=== PATIENT | male | born 1945 | race Caucasian/White ===

== ENCOUNTER 2020-07-05 11:09 | Emergency (ER) | payer MEDICARE, OTHER, SELFPAY ==
--- NOTE | ~2020-07-05 | XR_ITS ---
EXAMINATION: XR knee LT 3V DATE: 07/05/2020 12:09 INDICATION: Left knee pain TECHNIQUE: Three views of the left knee were obtained. COMPARISON: 01/18/2019 FINDINGS: Alignment is normal. No fracture or osteochondral lesion. There is unchanged moderate osteo arthritis of the medial and patellofemoral compartments and mild osteoarthritis of the lateral compar tment. A moderate size knee joint effusion is present. Soft tissues are unremarkable. IMPRESSION: 1. Moderate osteoarthritis without acute osseous abnormality. 2. Moderate size knee joint effusion. Reviewed, dictated and finalized at location A.
--- NOTE | ~2020-07-05 | XR_ITS ---
EXAMINATION: XR knee RT 3V DATE: 07/05/2020 12:09 INDICATION: Right knee pain TECHNIQUE: Three views of the right knee were obtained. COMPARISON: None. FINDINGS: Alignment is normal. No fracture or osteochondral lesion. There is moderate osteoarthritis of the patellofemoral compartment and mild osteoarthritis of the medial and lateral compartments. A s mall knee joint effusion is present. Soft tissues are unremarkable. IMPRESSION: 1. Osteoarthritis without acute osseous abnormality. 2. Small knee joint effusion. Reviewed, dictated and finalized at location A.
--- NOTE | 2020-07-05 11:27 | ED.FALL ---
HPI - Fall General Chief Complaint: Fall Stated Complaint: fell down the stairs Time Seen by Provider: 07/05/20 11:31 Source: patient and RN notes reviewed Mode of arrival: ambulatory Limitations: no limitations History of Present Illness HPI Narrative: 74-year-old male who presents to [facility] care with complaints of falling down the last 3 stairs in his basement last night landing on his knees. Patient states that his left knee just buckled when he was going down steps and he fell, Patient denies any dizziness, headache or loss of consciousness at time of fall. Patient states discomfort to both of his knees with increase pain to the left with palpable tenderness to medial aspect of left knee, no visible bruising noted. Patient states that he has seen Dr Mejía for his knees before. MD complaint: fall Fall from: down stairs (#) (Fell down 3 steps) Place fall occurred: home Location of injury - extremities: Bilateral: knee Related Data Home Medications Medication Instructions Recorded Confirmed atorvastatin 20 mg tablet 20 mg PO DAILY 10/18/19 07/05/20 blood sugar diagnostic #10 each 10/18/19 10/20/19 metoprolol tartrate 50 mg tablet 50 mg PO BID tablet 10/18/19 07/05/20 Allergies Allergy/AdvReac Type Severity Reaction Status Date / Time erythromycin base Allergy Unknown Unknown Verified 07/05/20 11:32 tetracycline Allergy Unknown Unknown Verified 07/05/20 11:32 Review of Systems Review of Systems: Narrative: CONSTITUTIONAL: Denies fever, chills, or sweats. EYES: Denies visual changes, redness, or discharge. ENT: Denies rhinorrhea, congestion, sore throat, or otalgia. CARDIOVASCULAR: Denies chest pain, palpitations, or edema. RESPIRATORY: Denies cough or dyspnea. GASTROINTESTINAL: Denies abdominal pain, nausea, vomiting, or diarrhea. GENITOURINARY: Denies dysuria or hematuria. SKIN: Denies rash or itching. MUSCULOSKELETAL: Denies acute back pain,positive for bilateral knee joint pain, or myalgia. NEUROLOGIC: Denies headache, numbness, or weakness. PSYCHIATRIC: Denies anxiety or depression. All systems reviewed & are unremarkable except as noted in HPI and below PMFSH Past Medical History Medical History Arthritis Chronic low back pain Coronary artery disease Degenerative disc disease Depression Diabetes Gout History of transient ischemic attack (TIA) Hypertension Surgical History Surgical History History of amputation of finger of left hand History of cardiac catheterization Hx of arthroscopy of left knee S/P laparoscopic fundoplication Family History Family History Mother Diabetes mellitus Family history of osteoarthritis Father Family history of dementia Other Family history of arthritis Family history of malignant neoplasm Social History Social History Smoking status: Never smoker Second hand tobacco smoke exposure: No Alcohol intake: current Substance use: never Substance use type: does not use Comments At time of signature, agree with nursing past medical, surgical, social and family history. There is no relevant family history pertinent to the presenting complaint Exam Narrative: Exam Narrative: GENERAL: Well-appearing, well-nourished, and in no acute distress. HEAD: Normocephalic, atraumatic. EYES: PERRLA and EOMI. ENT: Nares clear, no rhinorrhea or epistaxis. Mucous membranes moist. NECK: Supple.no lymphadenopathy CHEST: Clear to auscultation. No respiratory distress. HEART: Regular rate and rhythm. No murmur heard. Normal peripheral pulses. ABDOMEN: Soft, nontender, nondistended, normal active bowel sounds. EXTREMITIES: discomfort with range of motion to his knees, pain to medial aspect left knee greatest,swelling present to left knee, denies any tingling or n
[2020-07-05 11:32] VITALS: BP 117/51; PULSE 63; RESP 16; TEMP 36.4
== END 2020-07-05 12:52 | disposition home or self-care (01) ==
PROVIDERS: Emergency Provider Registered Nurse; PCP Family Medicine
DX: S86.911A Strain of unspecified muscle(s) and tendon(s) at lower leg level, right leg, initial encounter (principal); S80.02XA Contusion of left knee, initial encounter; M17.0 Bilateral primary osteoarthritis of knee; I25.10 Atherosclerotic heart disease of native coronary artery without angina pectoris; E11.9 Type 2 diabetes mellitus without complications; F32.9 Major depressive disorder, single episode, unspecified; I10 Essential (primary) hypertension; Z86.73 Personal history of transient ischemic attack (TIA), and cerebral infarction without residual deficits; W10.9XXA Fall (on) (from) unspecified stairs and steps, initial encounter; Y92.008 Other place in unspecified non-institutional (private) residence as the place of occurrence of the external cause
CPT/HCPCS: 73562; 99214; G0463

== ENCOUNTER 2020-09-27 08:34 | Emergency (ER) | payer MEDICARE, OTHER, SELFPAY ==
--- NOTE | ~2020-09-27 | XR_ITS ---
EXAMINATION: XR tibia fibula RT 2V DATE: 09/27/2020 08:57 INDICATION: Right lower leg pain. Injury. TECHNIQUE: 2 views of right tibia and fibula were obtained. COMPARISON: Right knee radiographs 07/05/2020 FINDINGS: Bone alignment is normal. No fracture. There is a small right knee osteoarthritis. IMPRESSION: 1. Mild right knee osteoarthritis. Reviewed, dictated and finalized at location A.
--- NOTE | 2020-09-27 08:42 | ED.LOWEXIN ---
HPI - Extremity Injury (Lower) General Chief Complaint: Extremity Injury, Lower Stated Complaint: R LEG INJURY Source: patient and RN notes reviewed Mode of arrival: ambulatory Limitations: no limitations History of Present Illness HPI Narrative: 75-year-old male presents the concern for right anterior lower leg pain. He reports 6 days ago he fell catching his leg between a wheelchair ramp. Reports bruising to the anterior right lower leg, pain. Reports he has been using crutches to avoid weightbearing, which increases pain. Reports he has been elevating the leg and using ice. Reports he saw his pain management doctor who suggested he get an x-ray of the leg. He denies any numbness, weakness in the ankle, foot, digits of the foot. Denies any posterior leg redness, swelling, tenderness, warmth. MD complaint: leg injury Related Data Home Medications Medication Instructions Recorded Confirmed atorvastatin 20 mg tablet 20 mg PO DAILY 10/18/19 07/14/20 blood sugar diagnostic #10 each 10/18/19 07/14/20 metoprolol tartrate 50 mg tablet 50 mg PO BID tablet 10/18/19 07/14/20 acetaminophen 500 mg tablet 1,000 mg PO Q6H PRN tablet 07/14/20 07/14/20 Allergies Allergy/AdvReac Type Severity Reaction Status Date / Time erythromycin base Allergy Unknown Unknown Verified 07/14/20 15:47 tetracycline Allergy Unknown Unknown Verified 07/14/20 15:47 Review of Systems Review of Systems: Narrative: CONSTITUTIONAL: Denies malaise, chills, sweats, or fever. CARDIOVASCULAR: Denies chest pain, palpitations, or edema. RESPIRATORY: Denies cough or dyspnea. SKIN: Reports right lower leg bruising MUSCULOSKELETAL: Reports right lower anterior leg pain NEUROLOGIC: Denies numbness, weakness, or headache. PSYCHIATRIC: Denies anxiety or depression. All systems reviewed & are unremarkable except as noted in HPI and below [facility] Past Medical History Medical History (Updated 09/27/20 @ 09:15 by Martha Godfrey NP) Arthritis Bilateral knee pain Chronic low back pain Coronary artery disease Degenerative disc disease Depression Diabetes Gout History of transient ischemic attack (TIA) Hypertension Peripheral neuropathy Surgical History Surgical History History of amputation of finger of left hand History of cardiac catheterization Hx of arthroscopy of left knee S/P laparoscopic fundoplication Family History Family History Mother Diabetes mellitus Family history of osteoarthritis Father Family history of dementia Other Family history of arthritis Family history of malignant neoplasm Social History Social History Smoking status: Never smoker Second hand tobacco smoke exposure: No Alcohol intake: current Substance use: never Substance use type: does not use Comments At time of signature, agree with nursing past medical, surgical, social and family history. There is no relevant family history pertinent to the presenting complaint Exam Narrative: Exam Narrative: GENERAL: Well-appearing, well-nourished, and in no acute distress. HEAD: Normocephalic, atraumatic. EYES: PERRLA, conjunctivae clear NECK: Supple. CHEST: Speaks in full sentences. No respiratory distress. HEART: Regular rate and rhythm. Normal and equal peripheral pulses. EXTREMITIES: Right leg, ankle has normal strength and sensation, normal range of motion. No edema, mild anterior lower leg ecchymosis in later stages of healing. 5/5 strength with ankle and knee flexion and extension. Normal sensation with sensitivity to light touch and pain. No point tenderness. No open wounds, no skin tenting, no devitalized tissue or atrophy, no trophic changes, no obvious deformity, alignment normal, nearby joints and structures intact. Distal pulses palpable and equal bilaterally, skin warm, dry, pink. Capillar
[2020-09-27 08:43] VITALS: BP 153/87; PULSE 70; RESP 16; TEMP 36.3; O2SAT 98
== END 2020-09-27 09:21 | disposition home or self-care (01) ==
PROVIDERS: Emergency Provider Nurse Practitioner; PCP Family Medicine
DX: S89.91XA Unspecified injury of right lower leg, initial encounter (principal); W19.XXXA Unspecified fall, initial encounter; M17.11 Unilateral primary osteoarthritis, right knee; I25.10 Atherosclerotic heart disease of native coronary artery without angina pectoris; M10.9 Gout, unspecified; Z86.73 Personal history of transient ischemic attack (TIA), and cerebral infarction without residual deficits; E11.42 Type 2 diabetes mellitus with diabetic polyneuropathy; I10 Essential (primary) hypertension; F32.9 Major depressive disorder, single episode, unspecified
CPT/HCPCS: 73590; 99213; G0463

== ENCOUNTER 2022-01-26 12:56 | Emergency (ER) | payer MEDICARE, OTHER, SELFPAY ==
--- NOTE | ~2022-01-26 | XR_ITS ---
EXAMINATION: XR wrist RT min 3V EXAM DATE: 01/26/2022 13:19 INDICATION: FALL backwards onto ice this A.M.; gen pain Rt wrist. TECHNIQUE: Right wrist frontal, frontal with ulnar deviation, oblique and lateral projections obtain ed and reviewed. Comparison is made to prior examination from 07/12/2017. FINDINGS: Right wrist scapholunate joint space is maintained. There are no acute fractures or disloca tions identified. There is no subcutaneous gas. The soft tissue is unremarkable. There are no rad iopaque foreign bodies. There is moderate 1st carpometacarpal, mild to moderate triscaphe primary os teoarthritis. IMPRESSION: 1. Right wrist exam without acute osseous findings. Reviewed, dictated and finalized at location A. 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
[2022-01-26 13:02] VITALS: BP 137/70; PULSE 69; RESP 16; TEMP 36.2; O2SAT 99
--- NOTE | 2022-01-26 13:32 | ED.FALL ---
HPI - Fall General Chief Complaint: Fall Stated Complaint: FALL/HEAD INJURY/L WRIST INJURY Time Seen by Provider: 01/26/22 13:25 Source: patient, RN notes reviewed and old records reviewed Mode of arrival: ambulatory Limitations: no limitations History of Present Illness HPI Narrative: 76-year-old male [facility] of [facility] in his dry voice this morning. Reports slipped on ice fell hit the back of his head and hurt his right wrist. Reports momentary double vision after he fell and hit his head. Denies loss of consciousness. Reports right wrist hurting. Reports broke same wrist several years ago. Denies headache, dizziness, blurry vision, sensitivity to light, nausea or vomiting. Holding right wrist. Reports first and second fingers feel numb. Has not taken anything for pain. Reports this is his fall at home. Does not use walker. Denies other concerns. [facility] MD complaint: fall Fall from: standing Fall witnessed: no Place fall occurred: home Loss of consciousness: none Symptoms prior to fall: none Context: tripped/slipped (Slipped on ice at home.) Related Data Home Medications Medication Instructions Recorded Confirmed atorvastatin 20 mg tablet 20 mg PO DAILY 10/18/19 07/14/20 blood sugar diagnostic #10 each 10/18/19 07/14/20 metoprolol tartrate 50 mg tablet 50 mg PO BID tablet 10/18/19 07/14/20 acetaminophen 500 mg tablet 1,000 mg PO Q6H PRN tablet 07/14/20 07/14/20 Allergies Allergy/AdvReac Type Severity Reaction Status Date / Time erythromycin base Allergy Unknown Unknown Verified 07/14/20 15:47 tetracycline Allergy Unknown Unknown Verified 07/14/20 15:47 Review of Systems Review of Systems: CONSTITUTIONAL: Denies malaise, chills, sweats, fatigue or fever. EYES: Denies redness, or discharge. Momentary double vision. ENT: Denies rhinorrhea, congestion, sinus pain, otalgia or sore throat. CARDIOVASCULAR: Denies chest pain, palpitations, or edema. RESPIRATORY: Denies cough or dyspnea. GASTROINTESTINAL: Denies abdominal pain, nausea, vomiting, diarrhea, bloody, or mucous stools. GENITOURINARY: Denies dysuria or hematuria. SKIN: Denies rash or itching. MUSCULOSKELETAL: Denies back pain. Right wrist pain. NEUROLOGIC: Denies numbness, weakness, or headache. PSYCHIATRIC: Denies anxiety or depression. All systems reviewed & are unremarkable except as noted in HPI and below PMFSH Past Medical History Medical History (Updated 01/26/22 @ 13:58 by Renu Jewell APRN) Arthritis Bilateral knee pain Chronic low back pain Coronary artery disease Degenerative disc disease Depression Diabetes Gout History of transient ischemic attack (TIA) Hypertension Peripheral neuropathy Surgical History Surgical History History of amputation of finger of left hand History of cardiac catheterization Hx of arthroscopy of left knee S/P laparoscopic fundoplication Family History Family History Mother Diabetes mellitus Family history of osteoarthritis Father Family history of dementia Other Family history of arthritis Family history of malignant neoplasm Social History Social History Smoking status: Never smoker Second hand tobacco smoke exposure: No Alcohol intake: current Alcohol use details: 1 glass of wine rarely Substance use: never Substance use type: does not use Comments At time of signature, agree with nursing past medical, surgical, social and family history. There is no relevant family history pertinent to the presenting complaint Exam Narrative: GENERAL: Well-appearing, well-nourished, male and in no acute distress. Pleasant and cooperative. Talkative. HEAD: Normocephalic, atraumatic. No occipital swelling, ecchymosis or erythema. EYES: con
== END 2022-01-26 14:08 | disposition home or self-care (01) ==
PROVIDERS: Emergency Provider Nurse Practitioner Family
DX: M25.531 Pain in right wrist (principal); W00.0XXA Fall on same level due to ice and snow, initial encounter; M19.90 Unspecified osteoarthritis, unspecified site; I25.10 Atherosclerotic heart disease of native coronary artery without angina pectoris; E11.42 Type 2 diabetes mellitus with diabetic polyneuropathy; M10.9 Gout, unspecified; Z86.73 Personal history of transient ischemic attack (TIA), and cerebral infarction without residual deficits; I10 Essential (primary) hypertension
CPT/HCPCS: 73110; 99213; G0463

== ENCOUNTER → 2022-07-01 12:29 | Outpatient (CLI) | payer MEDICARE, OTHER, SELFPAY ==
--- NOTE | ~2022-07-01 | MR_ITS ---
EXAMINATION: MR lumbar spine wo con DATE: 07/01/2022 13:07 INDICATION: Lumbar degenerative disc disease. TECHNIQUE: Magnetic resonance imaging (MRI) of the lumbar spine was performed without intravenous con trast. Sequences included sagittal T2-weighted FSE, sagittal T2-weighted FS FSE, sagittal T1-weighted FSE, and axial T2-weighted FSE. COMPARISON: None FINDINGS: 15 degrees levoscoliosis measured between L3 and L5. 2 mm retrolisthesis L1 on L2 and L2 on L3. Verte bral body heights are normal. Severe right-sided disc height loss with associated prominent fibrovasc ular degenerative endplate changes. Moderate disc height loss at T11-T12. Mild disc height loss at L1 -L2, L2-L3 and L4-L5. The conus medullaris terminates at L1. There is normal signal in the caudal spi nal cord. Bilateral T2 hyperintense renal cysts, the largest measuring 4.6 cm right kidney. Paraverte bral soft tissues are unremarkable. The following disc levels are specifically discussed: T12-L1: Disc is minimally bulging. There is mild bilateral facet joint osteoarthritis. There is no ne ural foraminal stenosis. There is no central canal stenosis. L1-L2: Disc is moderately bulging. There is mild bilateral facet joint osteoarthritis. There is mild left and minimal right neural foraminal stenosis. There is mild central canal stenosis. L2-L3: Disc is bulging. There is left and moderate right facet joint osteoarthritis. There is mild bi lateral neural foraminal stenosis. There is mild central canal stenosis along with narrowing at the l ateral recesses, left greater than right. L4-5: Disc is bulging with annular fissure. There is bilateral facet joint osteoarthritis. There is m ild to moderate bilateral neural foraminal stenosis. There is mild central canal stenosis with narrow ing of the left and right lateral recesses. L3-L4: Disc is bulging. There is mild left and severe right facet joint osteoarthritis. There is mild left and moderate to severe right neural foraminal stenosis. There is a to severe right-sided predom inant central canal stenosis. L5-S1: Disc is mildly bulging with annular fissure. There is severe bilateral facet joint osteoarthri tis. There is mild bilateral neural foraminal stenosis. There is no central canal stenosis. IMPRESSION: 1. . Mild lower lumbar levoscoliosis with severe spondylosis. Reviewed, dictated and finalized at location A.
== END ==
PROVIDERS: PCP Family Medicine; Visit Provider Family Medicine
DX: M51.36 Other intervertebral disc degeneration, lumbar region (principal); Z92.89 Personal history of other medical treatment; M41.86 Other forms of scoliosis, lumbar region; M47.816 Spondylosis without myelopathy or radiculopathy, lumbar region
CPT/HCPCS: 72148

== ENCOUNTER 2025-05-19 11:12 | Inpatient (IN) | payer MEDICARE, OTHER, SELFPAY ==
[2025-05-19] VITALS (13 sets, daily range): BP systolic 89–116; BP diastolic 56–64; PULSE 52–80; RESP 10–20; TEMP 35.8–36.6; O2SAT 95–100; BMI 29.7
--- NOTE | ~2025-05-19 | US_ITS ---
EXAMINATION: US carotid duplex BI DATE: 05/20/2025 14:57 INDICATION: Syncope TECHNIQUE: Grayscale, color Doppler, and pulsed Doppler images of the cervical carotid arteries were obtained. The degree of vessel stenosis is placed in one of the following categories: normal, <50%, 5 0-69%, >=70% but less than near-occlusion, near-occlusion, or total occlusion. Note that percent sten osis relative to normal distal artery lumen diameter is indirectly measured from velocity measurement s as described by Zain, et al. Radiology 2003; 229:340-346. COMPARISON: None. FINDINGS: RIGHT: The right common carotid artery (CCA) peak systolic velocity (PSV) is 70 cm/s. The right internal car otid artery (ICA) PSV is 126 cm/s. The right ICA end-diastolic velocity (EDV) is 33 cm/s. The right I CA/CCA PSV ratio is 1.8. Grayscale and color Doppler images including secondary Doppler criteria yiel d an estimate of <50% diameter reduction from plaque in the ICA. The external carotid artery (ECA) PS V is 108 cm/s. There is antegrade flow in the right vertebral artery. LEFT: The left CCA PSV is 73 cm/s. The left ICA PSV is 97 cm/s. The left ICA EDV is 13 cm/s. The left ICA/C CA PSV ratio is 1.3. Grayscale and color Doppler images yield an estimate of <50% diameter reduction from plaque in the ICA. The ECA PSV is 92 cm/s. There is antegrade flow in the left vertebral artery. IMPRESSION: 1. <50% stenosis in the right internal carotid artery. 2. <50% stenosis in the left internal carotid artery. Reviewed, dictated and finalized at location B.
--- NOTE | ~2025-05-19 | CT_ITS ---
EXAMINATION: CT brain wo con DATE: 05/21/2025 12:41 INDICATION: Syncope TECHNIQUE: Computed tomography (CT) of the head was performed without intravenous contrast. Sagittal and coronal reconstructions were performed. The mA was adjusted according to patient size. Iterative reconstruction technique was employed. The dose-length product was 605.33 mGy-cm. COMPARISON: head CT dated 07/12/2017 FINDINGS: No acute intracranial hemorrhage, acute infarction or abnormal extra axial fluid collection. There is mild scattered white matter hypoattenuation consistent with chronic small vessel ischemic disease. S ymmetric prominence of the sulci, ventricles and subarachnoid spaces overlying the convexities consis tent with moderate age-appropriate diffuse cerebral volume loss. No mass/mass effect. Mild mucosal th ickening in the bilateral ethmoid and left maxillary sinuses. The orbits and mastoid air cells are no rmal. IMPRESSION: 1. No acute intracranial process. 2. Age-related changes including moderate diffuse volume loss and mild scattered white matter hypoatt enuation consistent with chronic small vessel ischemic disease. Reviewed, dictated and finalized at location A. IMPRESSION: 1. No acute intracranial process. 2. Age-related changes including moderate diffuse volume loss and mild scattere d white matter hypoattenuation consistent with chronic small vessel ischemic di sease.
--- NOTE | ~2025-05-19 | XR_ITS ---
XR chest 2V 05/19/2025 12:06 Indication: Syncope Procedure: 2 view chest Comparison: Comparison to multiple prior studies sequentially, with oldest reviewed study dated 03/2010. Findings: Heart size upper normal. Right lung clear. Left basilar atelectasis. No focal pneumonia, si gnificant effusion or pneumothorax. There is atherosclerosis. Impression: 1: Left basilar atelectasis. Reviewed, dictated and finalized at location A. Impression: 1: Left basilar atelectasis.
--- NOTE | 2025-05-19 11:27 | ECG_ITS ---
Test Date: 2025-05-19 11:37:17 Measurements Intervals [place] Rate: 54 P: 79 WV: 208 QRS: -31 QRSD: 90 T: -4 QT: 453 QTc: 431 Interpretive Statements SINUS BRADYCARDIA WITH SINUS ARRHYTHMIA LEFT AXIS DEVIATION INCOMPLETE RIGHT BUNDLE BRANCH BLOCK LOW QRS VOLTAGE IN PRECORDIAL LEADS CONSIDER INFERIOR INFARCT, AGE INDETERMINATE BORDERLINE ST-T WAVE ABNORMALITY- ANTERIOR LEADS BASELINE ARTIFACT- I, II, III, AVR, AVL, AVF, V2 ABNORMAL ECG No previous ECG available for comparison Electronically Signed On 05-19-2025 12:02:22 CDT by Mark Proctor D.O.
--- NOTE | 2025-05-19 12:24 | ED_ITS ---
HPI - Syncope General Chief Complaint: Syncope Stated Complaint: syncope Time Seen by Provider: 05/19/25 11:31 History of Present Illness HPI narrative: Pt was shopping at [employer] and had completed his shopping and was talking to two customers when he started feeling lightheaded and had a syncopal episode. Pt thinks he was lowered to the ground byt the bystanders and has no complaints of pain or injury. Pt denies CP or palpitations of SOB prior to or after event. Related Data Home Medications ?Medication ?Instructions ?Recorded ?Confirmed ?Last Taken ?Type atorvastatin 20 mg tablet 20 mg PO DAILY 10/18/19 05/19/25 Unknown History metoprolol tartrate 50 mg tablet 50 mg PO BID 10/18/19 05/19/25 Unknown History gabapentin 100 mg capsule 100 mg PO BID 05/19/25 05/19/25 Unknown History levothyroxine 50 mcg tablet 50 mcg PO DAILY@0630 05/19/25 05/19/25 Unknown History pregabalin 100 mg capsule 100 mg PO BID 05/19/25 05/19/25 Unknown History valsartan 80 mg tablet 40 mg PO DAILY 05/19/25 05/19/25 Unknown History vit C 250 mg-vit E 90 mg-zinc 40 1 tablet PO BID 05/19/25 05/19/25 Unknown History mg-copper 1 [id number]-[place] capsule ([facility] AREDS-2) zolpidem 12.5 mg tablet,extended 12.5 mg PO .QHS insomnia 05/19/25 05/19/25 05/18/25 History release,multiphase Allergies Allergy/AdvReac Type Severity Reaction Status Date / Time erythromycin base Allergy Unknown Unknown Verified 07/14/20 15:47 tetracycline Allergy Unknown Unknown Verified 07/14/20 15:47 Review of Systems 2 Review of Systems: All systems reviewed & are unremarkable except as noted in HPI and below [facility] Past Medical History Medical History (Updated 05/19/25 @ 14:52 by Yumiko Dorman APRN) Peripheral neuropathy Bilateral knee pain Chronic low back pain Coronary artery disease Arthritis Diabetes Depression Hypertension History of transient ischemic attack (TIA) Gout Degenerative disc disease Surgical History Surgical History History of amputation of finger of left hand History of cardiac catheterization Hx of arthroscopy of left knee S/P laparoscopic fundoplication Family History Family History Mother Diabetes mellitus Family history of osteoarthritis Father Family history of dementia Other Family history of arthritis Family history of malignant neoplasm Social History Social History Smoking status: Never smoker Second hand tobacco smoke exposure: No Alcohol intake: current Alcohol use details: 1 glass of wine rarely Substance use: never Substance use type: does not use Do You Feel Safe in your Home?: Yes Lack of Transportation: No Lack of Food: Sometimes True Current Housing: I Have Housing Concerned About Future Housing: No Difficulty Paying Gas/Electric Bills: No Difficulty Paying for Meds: No Currently Unemployed: No Education: Master's Degree or Higher Difficulty w/ Childcare or Family Care: No Spiritual care concerns: No Exam 2 Const: General: healthy appearing and no acute distress Nutritional Appearance: well nourished Orientation/consciousness: patient oriented x3 Limitations: no limitations Eyes: Pupils: Equal, round and reactive pupils present EOM: EOMs intact bilaterally Neck: Neck: normal visual inspection Chest: Chest palpation & inspection: normal inspection of the chest Resp: Effort & Inspection: normal respiratory effort Auscultation: clear to auscultation bilaterally Cardio: Rate: regular rate Rhythm: regular rhythm GI: Auscultation: normal bowel sounds Skin: General skin exam: normal color Rashes: no rashes Wounds: no wounds Neuro: General: patient oriented x3, moves all extremities, no meningeal signs and no focal motor deficits Cranial nerves: Yes Nystagmus not present S peech: normal speech Extrem: General: normal to inspection and no clubbing, cyanosis or edema Psych: Mental Status: mental status grossly normal Affect: normal affect Attitude: cooperative Course Vital Signs Vital signs: Vital Signs Temperature 97.8 F 05/19/25 11:28 Pulse Rate 57 L 05/19/25 11:28 Respiratory Rate 20 05/19/25 11:28 Blood Pressure 91/56 L 05/19/25 11:28 Pulse Oximetry 95 05/19/25 11:28 Oxygen Delivery Room Air 05/19/25 11:28 Temperature 97.8 F 05/19/25 11:28 Pulse Rate 54 L 05/19/25 14:00 Respiratory Rate 14 05/19/25 14:00 Blood Pressure 106/63 05/19/25 14:00 Pulse Oximetry 100 05/19/25 14:00 Oxygen Delivery Room Air 05/19/25 11:28 MDM - Syncope MDM Narrative Medical decision making narrative: Pt presents after having syncopal episode. seems more cardiac. will get labs and ekg and cxr and orthostatics. will likely need observation. labs look fine no arrythmia on monitor. discussed with Yumiko agrees to admit to observation. Differential Diagnosis Differential diagnosis: Likely syncope due to orthostatic hypotension, vasovagal syncope, complete atrioventricular block and dehydration Lab Data 05/19/25 12:22 05/19/25 12:22 Labs: Lab Results 05/19/25 05/19/25 05/19/25 Range/Units 12:20 12:22 12:23 WBC 8.2 (4.5-10.0) K/mm3 RBC 3.92 L (4.6-6.20) M/mm3 Hgb 12.6 L (14.0-18.0) g/dL Hct 38.4 L (42.0-52.0) % MCV 98.0 (80-100) fl MCH 32.1 (26-34) pg MCHC 32.8 (32-36) g/dl RDW 13.6 (11.5-14.5) % Plt Count 132 L (150-375) k/mm3 MPV 10.7 H (7.4-10.4) fl Immature Gran % (Auto) 0.2 (0-0.5) % Neut % (Auto) 71.4 (45.5-73.1) % Lymph % (Auto) 15.0 L (18.3-44.2) % [place] % (Auto) 11.4 H (2.6-8.5) % Eos % (Auto) 1.8 (0-4.4) % Baso % (Auto) 0.2 (0.2-1.2) % Lymph # (Auto) 1.23 (0.9-3.2) K/mm3 [place] # (Auto) 0.9 H (0.1-0.6) K/mm3 Eos # (Auto) 0.2 (0-0.3) K/mm3 Baso # (Auto) 0.0 (0.0-0.1) K/mm3 Abs Immat Gran (auto) 0.02 (0.00-0.031) K/mm3 Absolute Neuts (auto) 5.9 (1.3-6.7) K/mm3 Absolute Nucleated RBC 0.000 (0.0-0.012) K/mm3 Nucleated RBC % 0.0 (0.0-0.2) % % Immature Plt Fraction 8.5 (0.9-11.2) % PT 14.2 (11.1-14.7) Seconds INR 1.1 APTT 45.2 H (22.3-36.8) Seconds Sodium 137 (137-145) mmol/L Potassium 4.2 (3.4-5.0) mmol/L Chloride 105 (98-107) mmol/L Carbon Dioxide 26 (22-30) mmol/L Anion Gap 6 (4-12) mmol/L BUN 15 (9-20) mg/dL Creatinine 0.94 (0.7-1.3) mg/dL Estim Creat Clear Calc 58 ml/min Estimated GFR > 60 (59 - ) Glucose 116 H (65-110) mg/dL Calcium 8.6 (8.4-10.2) mg/dL Total Bilirubin 0.5 (0.2-1.3) mg/dL AST 43 (17-59) U/L ALT 38 (6-50) U/L Alkaline Phosphatase 86 (38-126) U/L Troponin I < 0.012 (0.000-0.034) ng/mL Total Protein 6.8 (6.3-8.2) g/dL Albumin 3.7 (3.5-5.1) g/dL Discharge Plan Discharge Clinical Impression: Syncope Patient Disposition: Still a Patient Condition: Stable
--- OUTSIDE RECORDS SUMMARY | 2025-05-19 12:25 | XMS_ITS | Continuity of Care Document ---
Author Name [facility] Organization [facility] Care Team Providers Care Eligibility And Occupancy Interviewer Name Role Phone [facility] Unavailable Unavailable Medications Combined list of outpatient medications from Department of Defense and Veterans Affairs facilities.Medications provided include 1) outpatient medications from the last 15 months, and 2) patient-reported medications. Medication Details Route Status Patient Instructions Prescription Expires Prescription Number Last Dispense Date Ordering Provider Order Date Order Qty Source AMBIEN CR (ZOLPIDEM TARTRATE), 12.5MG, TAB MPHASE, ORAL, [facility], 100 ea. BOTTLE Active [id number] 4 2023 90 Pharmac y Data Transac tion Service Facilit y ATORVASTATI N CALCIUM (atorvastat in calcium), 20 MG, TABLET, ORAL, PAUL PHARMACEU, 500 ea. BOTTLE Active [id number] 2023 90 Pharmac y Data Transac tion Service Facilit y CLOPIDOGREL (clopidogre l bisulfate), 75 MG, TABLET, ORAL, PAUL [facility]ARM[facility]U, 1000 ea. BOTTLE Active [id number] 4 2023 90 Pharmac y Data Transac tion Service Facilit y GLIMEPIRIDE (glimepirid e), 1 MG, TABLET, ORAL, [employer] 100 ea. BOTTLE Active [id number] 4 2023 90 Pharmac y Data Transac tion Service Facilit y METOPROLOL TARTRATE (metoprolol tartrate), 50 MG, TABLET, ORAL, [employer] 1000 ea. BOTTLE Active [id number] 4 2023 180 Pharmac y Data Transac tion Service Facilit y PREGABALIN (pregabalin ), 100 MG, CAPSULE, ORAL, [facility], 90 ea. BOTTLE Cancele d [id number] : 2023 0 Pharmac y Data Transac tion Service Facilit y PREGABALIN (pregabalin ), 100 MG, CAPSULE, ORAL, [facility], 90 ea. BOTTLE Active [id number] 4 2023 60 Pharmac y Data Transac tion Service Facilit y VALSARTAN (VALSARTAN) , 160 MG, TABLET, ORAL, [facility] 90 ea. BOTTLE Active [id number] 4 2023 90 Pharmac y Data Transac tion Service Facilit y ZOLPIDEM TARTRATE ER (ZOLPIDEM TARTRATE), 12.5 MG, TAB MPHASE, ORAL, LUPIN [facility]ARMACE[facility], 100 ea. BOTTLE Active [id number] 4 2023 90 Pharmac y Data Transac tion Service Facilit y Immunizations Combined list of available immunizations from the Department of Defense and Veterans Affairs facilities. 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 Status Comments Source COVID-19, mRNA, LNP-S, PF, 30 mcg/0.3 mL dose, tova-sucrose 2021 [employer] (PFR) Not Given COVID-19, mRNA, LNP-S, PF, 30 mcg/0.3 mL dose, tova-sucr ose [facility] influenza, high-dose, quadrivalent 2020 RAUL, () Not Given influenza , high-dose , quadrival ent DoD COVID-19, mRNA, LNP-S, PF, 30 mcg/0.3 mL dose 2020 [place] (PFR) Not Given COVID-19, mRNA, LNP-S, PF, 30 mcg/0.3 mL dose DoD COVID-19, mRNA, LNP-S, PF, 30 mcg/0.3 mL dose 2020 [employer] [place] (PFR) Not Given COVID-19, mRNA, LNP-S, PF, 30 mcg/0.3 mL dose DoD COVID-19, mRNA, LNP-S, PF, 30 mcg/0.3 mL dose 2020 [employer] [place] (PFR) Not Given COVID-19, mRNA, LNP-S, PF, 30 mcg/0.3 mL dose [facility] Influenza, injectable, MDCK, preservative free, quadrivalent 2019 ALUL, () Not Given Influenza , injectabl e, MDCK, preservat monique free, quadrival ent DoD Pneumococcal conjugate PCV 13 2017 ALUL, () Not Given Pneumococ dorinda conjugate PCV 13 [facility] Liberian Encephalitis Vaccine SC 3 1998 Unknown, Provider [id number] Tonya (CON) complet ed Liberian Encephali tis Vaccine SC DoD anthrax vaccine 3 1998 Unknown, Provider [id number] Other (OTH) complet ed anthrax vaccine DoD Liberian Encephalitis Vaccine SC 2 1998 Unknown, Provider [id number] 39 Tonya (CON) complet ed Liberian Encephali tis Vaccine SC DoD Liberian Encephalitis Vaccine SC 1 1998 Unknown, Provider [id number] 39 Tonya (CON) complet ed Liberian Encephali tis Vaccine SC [facility] typhoid vaccine, live, oral 1 1998 Unknown, Provider 25 () complet ed typhoid vaccine, live, oral DoD anthrax vaccine 2 1998 Unknown, Provider [id number] Other (OTH) complet ed anthrax vaccine DoD anthrax vaccine 3 1998 Unknown, Provider 24 [employer] [place] (MIP) complet ed anthrax vaccine DoD anthrax vaccine 2 1998 Unknown, Provider 24 [employer] [place] (MIP) complet ed anthrax vaccine DoD anthrax vaccine 1 1998 Unknown, Provider 24 [employer] [place] (MIP) complet ed anthrax vaccine [facility] influenza virus vaccine, whole virus 1 1997 Unknown, Provider 16 () complet ed influenza virus vaccine, whole virus [facility] meningococcal polysaccharid e vaccine (MPSV4) 1 1996 Unknown, Provider 32 () complet ed meningoco ccal polysacch aride vaccine (MPSV4) DoD typhoid vaccine, parenteral, acetone-kille d, dried ([place] ) 1 1996 Unknown, Provider 53 () complet ed typhoid vaccine, parentera l, acetone-k illed, dried ([place] ) [facility] hepatitis A vaccine, adult dosage 2 1995 Unknown, Provider 52 () complet ed hepatitis A vaccine, adult dosage DoD tetanus and diphtheria toxoids, adsorbed, preservative free, for adult use (2 Lf of tetanus toxoid and 2 Lf of diphtheria toxoid) 1 1994 Unknown, Provider 09 () complet ed tetanus and diphtheri a toxoids, adsorbed, preservat monique free, for adult use (2 Lf of tetanus toxoid and 2 Lf of diphtheri a toxoid) DoD yellow fever vaccine 1 1990 Unknown, Provider 37 () complet ed yellow fever vaccine DoD trivalent poliovirus vaccine, live, oral 1 1955 Unknown, Provider 02 () complet ed trivalent polioviru s vaccine, live, oral DoD Encounters Combined list of: 1) Encounters from Department of Veterans Affairs facilities going backup to the last 18 months, not all [facility] inpatient encounters are included; 2) Encounters from the Department of Defense facilities going backup to 280 months. Location Location Details Encounter Type Encounter Number Reason For Visit Attending Provider ADM Date DC Date Status Disposition Source [facility] Outpatient Encounter [id number] 9 12/28 [facility] Social History Combined list of available smoking, tobacco, and other social history from Department of Defense and Veterans Affairs facilities. Social History Type Response Date Comment Sourc e This section is an empty social history section. DoD
--- OUTSIDE RECORDS SUMMARY | 2025-05-19 12:25 | XMS_ITS | Referral Summary ---
Author Organization [facility] [address] [facility] [address] Address [address] [facility] [address] [place] [address] Care Team Providers Care Wage Adjuster Name Role Phone Michael De La Torre MD Primary Care Provider [phone] Jacqueline Matias DC Unavailable + Jose Jeffries MD Unavailable [phone] Jaswinder Kaplan OD Unavailable [phone] Encounters Date Type Department Care Team Description 02/28/2025 Telephone [facility] Primary Care at [address] [phone] Michael De La Torre MD albumin creatine ratio order 02/26/2025 Results Follow-Up [facility] Primary Care at [address] [id number] Michael De La Torre MD Thyroid Function [place], Hemoglobin A1c, Lipid panel, Additional followed-up results: 5 02/25/2025 11:46 AM CDT - 02/25/2025 11:59 PM CDT Hospital Encounter [address] [address] Hypertension associated with diabetes (HCC); Type 2 diabetes mellitus with hyperlipidemia (HCC); Coronary artery disease involving [place] coronary artery of [place] heart without angina pectoris; Morbid (severe) obesity due to excess calories (HCC); Body mass index (BMI) 31.0-31.9, adult Discharge Disposition: Discharge to home or self care 02/25/2025 11:45 AM CDT Lab [facility] Outpatient Lab at [address] [address] Type 2 diabetes mellitus with hyperlipidemia (HCC) (Primary Dx); Hypertension associated with diabetes (HCC) 02/25/2025 11:00 AM CDT Office Visit [facility] Primary Care at [address] [phone] Michael De La Torre MD Hypertension associated with diabetes (HCC) (Primary Dx); Coronary artery disease involving [place] coronary artery of [place] heart without angina pectoris; Type 2 diabetes mellitus with hyperlipidemia (HCC); Morbid (severe) obesity due to excess calories (HCC); Subclinical hypothyroidism from Last 3 Months Allergies No known active allergies Medications blood glucose diagnostic (glucose blood) stripIndications: Type 2 diabetes mellitus with diabetic polyneuropathy, without long-term current use of insulin ([facility]) For at-home monitoring of blood glucose E11.65 100 each 11 01/28/20 22 Active lancets miscIndications:T ype 2 diabetes mellitus with diabetic polyneuropathy, without long-term current use of insulin ([facility]) Check blood sugar 1-2 times a day or as directed. E11.65 100 each 11 01/28/20 22 Active nitroglycerin (NITROSTAT) 0.4 mg SL tabletIndications :acute episode of anginal pain Place 1 tablet (0.4 mg total) under the tongue every 5 (five) minutes as needed for chest pain 90 tablet 01/30/20 22 Active vitamins A,C,S-zyxx-qyaidj (ICaps AREDS) 14,320226-200 znzd-sx-gtlp capsule Take by mouth Active vit C/E/zinc ox/fam/lut/zeax (ICAPS AREDS2 ORAL) Take by mouth Active cyanocobalamin (Vitamin B-12) 100 mcg tabletIndications :Prevention of Vitamin B12 Deficiency Take 1 tablet (100 mcg total) by mouth daily Active glimepiride (AMARYL) 1 mg tablet TAKE 1 TABLET DAILY BEFORE BREAKFAST 90 tablet 3 03/17/20 24 Active citalopram (CeleXA) 20 mg tablet TAKE 1 TABLET DAILY 90 tablet 3 08/17/20 24 Active valsartan (DIOVAN) 80 mg tabletIndications :Iatrogenic hypotension TAKE 1 TABLET DAILY 90 tablet 3 02/01/20 Active clopidogreL (PLAVIX) 75 mg tablet TAKE 1 TABLET DAILY 90 tablet 1 02/20/20 Active NON FORMULARY, FOR CLINIC ADMINISTERED MEDICATIONS ONLY, (not in database) 10/01/20 Active levothyroxine (SYNTHROID) 50 mcg tabletIndications :Subclinical hypothyroidism Take 1 tablet (50 mcg total) by mouth daily 90 tablet 4 02/26/20 Active pregabalin (LYRICA) 100 mg capsuleIndication s:Type 2 diabetes mellitus with diabetic polyneuropathy, without long-term current use of insulin (HCC) TAKE 1 CAPSULE TWICE A DAY 60 capsule 3 03/25/20 Active atorvastatin (LIPITOR) 20 mg tablet TAKE 1 TABLET DAILY 90 tablet 04/18/20 25 2024 Active Ambien CR 12.5 mg CR tabletIndications :Other insomnia TAKE 1 TABLET NIGHTLY NEEDED FOR SLEEP 90 tablet 1 05/06/20 Active metoprolol tartrate (LOPRESSOR) 50 mg immediate release tablet TAKE 1 TABLET TWICE A DAY WITH MEALS 180 tablet 3 05/17/20 25 2024 Active metoprolol tartrate (LOPRESSOR) 50 mg immediate release tablet TAKE 1 TABLET TWICE A DAY WITH MEALS 180 tablet 3 04/23/20 24 2024 Discontinued zolpidem CR (Ambien CR) 12.5 mg CR tabletIndications :Insomnia Take 1 tablet (12.5 mg total) by mouth nightly as needed for sleep 90 tablet 2 11/10/20 24 2024 Discontinued Active Problems Problem Noted Date Diagnosed Date Subclinical hypothyroidism 02/26/2025 Platelets decreased 05/11/2024 Morbid (severe) obesity due to excess calories 0 03/20/2023 Assessment & Plan (11/21/2024 7:23 PM PHARMACY MESSENGER): BMI Follow-up includes: nutrition counseling, exercise counseling, and education provided. meterman current use of anticoagulant Chronic midline low back pain without sciatica 1 Sacroiliitis 09/27/2022 DDD (degenerative disc disease), lumbar 09/27/20 Other insomnia 02/25/2022 Trochanteric bursitis of right hip 02/12/2022 Lumbar facet arthropathy 02/12/2022 Peripheral neuropathy 02/12/2022 Type 2 diabetes mellitus with hyperlipidemia Cervical spondylosis with radiculopathy 01/28/20 Hypertension associated with diabetes 01/28/2022 Assessment & Plan (08/31/2022 2:22 PM CDT): BP is acceptable Labs reviewed. Mildly low HDL/good cholesterol noted TSH is slightly high, but T4 is in range. We will repeat thyroid panel in 3-4 weeks (nonfasting) Otherwise labs look fine Labs ordered for next V/medicare AWV Continue working with PT exercises Pain management referral to Dr. Huerta ordered today Assessment & Plan (02/25/2022 1:27 PM CDT): Voltaren cream trial (OTC) as discussed by pain management. Continue as per Pain Management otherwise, as well as as per chiropractor Diabetes seems under control, continuing current regimen; last A1c was 6.3% Verified compliance with glimepiride, will continue that current regimen Encounter for Medicare annual wellness exam 01/02 Assessment & Plan (05/11/2024 1:17 PM CDT): A(n) yearly Medicare Annual Wellness Visit has been performed today. Jose Zaragoza is not up to date on screening tests. He is in need of Diabetic eye exam and hepatitis B screening . He is not up to date on needed preventative vaccinations; He is in need of Zoster. We discussed healthy lifestyle habits, educational material has been given. Medications reviewed, changes documented as per the medical record and discussed with patient along with risks vs benefits. Return in 6 months Assessment & Plan (03/20/2023 2:06 PM CDT): A(n) yearly Medicare Annual Wellness Visit has been performed today. Jose Zaragoza is not up to date on screening tests. He is in need of Diabetic foot exam and Diabetic kidney disease screening. He is not up to date on needed preventative vaccinations; He is in need of Zoster and Covid-19 (booster). We discussed healthy lifestyle habits, educational material has been given. Medications reviewed, changes documented as per the medical record and discussed with patient along with risks vs benefits. BP is controlled Will continue citalopram at current dose for now, but if we continue to have trouble we will attempt increase on dose Counseling may be helpful to help manage the grief, if we are not getting better Labs ordered for next visit A1c is increased slightly TSH is mildly elevated again; we will try low-dose thyroid replacement Continue B12 as it has been helpful Checking potassium today Return in 3 months Assessment & Plan (01/28/2022 4:42 PM PHARMACY MESSENGER): A initial well visit to establish care has been performed today. Jose Zaragoza is not up to date on screening tests. He is in need of Diabetic foot exam, Prostate screening, Hepatitis C screening, Diabetic kidney disease screening and Cholesterol screening- these have been ordered. He is up to date on needed preventative vaccinations. BP is well controlled Labs pending; we will be checking the a1c and such as well Continuing current regimen Will add Lyrica given the neuropathy pain; sent to local Will need the name of the podiatry office as well Referral to pain management ordered Glucose monitoring equipment sent to local pharmacy; we will send other refills to [facility]. Coronary artery disease invo lving [place] coronary artery of [place] heart without angina pectoris 11/13/2017 CAD S/P percutaneous coronary angioplasty 2016 Immunizations Immunization Administration Dates Next Due Anthrax 03/16/1999, 9,02/03/1999,01/22,01/07/1999 Hep A, Adult 10/31/1996 Influenza, Quad, Adjuvantate d, Intramuscular 10/02/2022 Influenza, Quadrivalent, Tameka l Culture-based MDCK, Preservative Free, Antibiotic Free, Intramuscular 09/19/2020 Influenza, Quadrivalent, Hig h Dose, Preservative Free, Intrr 08/28/2023,09/10/2021 Influenza, Quadrivalent, Spl it, Preservative Free, Intramuscular 10/20/2019 Influenza, Trivalent, High D ose, Split, Preservative Free, Intramuscular 10/20/2024,09/30/2018,09/29/2018,11/10,09/29/2013 Influenza, Unspecified 10/20/2024,2022(Deferred: Patient Refused),12/01/2022(Deferred: Patient Refused),12/01/2021(Deferred: Patient Refused) Influenza, Whole 11/04/1998 Albanian Encephalitis 03/28/1999,03/08/1999,01/31 Meningococcal Polysaccharide (Menomune) 08/01/1997 OPV 03/31/1956 Pfizer SARS-CoV-2 Monovalent Vaccination (12+ Yrs) PURPLE 03/02/2021,02/08/2021 Pneumococcal Conjugate PCV 13 10/01/2018, 018 Pneumococcal Conjugate Pcv20 10/20/2024 Pneumococcal Polysaccharide PPV23 12/01/2012 RSV Vaccine, Pref, Recombina nt, Subunit, Adjuvanted, PF, IM (Arexvy) 10/20/2024 Td, adsorbed 03/31/1995 Tdap 03/20/2019,02/06/2007 Typhoid Live 02/26/1999 Typohid AKD SQ 08/01/1997 Yellow Fever 05/01/1991 Social History Tobacco Use Types Packs/Day Years Used Date Smoking Tobacco: Never Cigarettes Smokeless Tobacco: Never Tobacco Cessation:Counseling Given: Not Answered Comments:My Father smoked 5 packs a day. I deplored smoking. Alcohol Use Standard Drinks/Week Comments No 0 (1 standard drink = 0.6 oz pur e alcohol) PHQ-2 Answer Date Recorded PHQ-2 Total Score (If total score is 3 or more points, staff should administer the PHQ-9) 0 02/25/2025 Education Answer Date Recorded What is the highest level of school you have completed or the highest degree you have received? Bachelor's degree (e.g., BA, AB, BS) 01/28/2022 Sex and Gender Information Value Date Recorded Sex Assigned at Not on file Legal Sex Male 1:59 AM PHARMACY MESSENGER Gender Identity Male 04/14/2024 3:40 PM CDT Sexual Orientation Straight 04/14/2024 3: 42 PM CDT Occupation Industry Job Start Date Job End Date Not on file Not on file Not on file Not on file Last Filed Vital Signs Vital Sign Reading Time Taken Comments Blood Pressure 110/70 02/25/2025 11:14 AM CDT Pulse 45 02/25/2025 11:14 AM CDT Temperature 36 C (96.8 F) 02/25/2025 11:14 AM CDT Respiratory Rate 18 02/25/2025 11:14 AM CDT Oxygen Saturation 96% 02/25/2025 11:14 AM CDT Inhaled Oxygen Concentration - - Weight 98.4 kg (217 lb) 02/25/2025 11:14 AM CDT Height 177.8 cm (5' 10) 02/25/2025 11:14 AM CDT Body Mass Index 31.14 02/25/2025 11:14 AM CDT Plan of Treatment Not on file Goals Goal Patient Goal Type Associated Problems Recent Progress Patient-Stated? Author [facility] Ifeanyi Gaytan, RN Note: Sit comfortably, exercise, do home repairs, yardwork with minimal to no relief. Procedures Procedure Name Priority Date/Time Associated Diagnosis Comments EGFR Routine 02/25/2025 11:46 AM CDT Hypertension associated with diabetes (HCC) DIFFERENTIAL AUTO Routine 02/25/2025 11: 46 AM CDT Hypertension associated with diabetes (HCC) VITAMIN D 25 HYDROXY Routine 02/25/2025 11:46 AM CDT Morbid (severe) obesity due to excess calories (HCC) Body mass index (BMI) 31.0-31.9, adult CBC WITH AUTO DIFFERENTIAL Routine 02/25/2025 11:46 AM CDT Hypertension associated with diabetes (HCC) COMPREHENSIVE METABOLIC PANEL Routine 02/25/2025 11:46 AM CDT Hypertension associated with diabetes (HCC) LIPID PANEL Routine 02/25/2025 11:46 AM CDT Coronary artery disease involving [place] coronary artery of [place] heart without angina pectoris Type 2 diabetes mellitus with hyperlipidemia (HCC) HEMOGLOBIN A1C Routine 02/25/2025 11:46 AM CDT Hypertension associated with diabetes (HCC) Type 2 diabetes mellitus with hyperlipidemia (HCC) THYROID FUNCTION CASCADE Routine 02/25/2025 11:46 AM CDT Hypertension associated with diabetes (HCC) ALBUMIN CREATININE RATIO, URINE Routine 06/20/2023 2:02 PM CDT Hypertension associated with diabetes (HCC) STOOL DNA COLOGUARD Routine 06/15/2022 8:45 AM CDT Screen for colon cancer HEPATITIS C ANTIBODY Routine 01/28/2022 3:06 PM PHARMACY MESSENGER Encounter for hepatitis C screening test for low risk patient from Last 3 Months or Most Recently Relevant to Health Maintenance Results * eGFR (02/25/2025 11:46 AM CDT) eGFR >90 >=60 mL/min/1. 73 m2 Comment: Interpretive Data Reference Interval Normal >/= 90 mL/min/1.73m2 Mildly decreased* 60 - 89 mL/min/1.73m2 Mildly to moderately decreased 45 - 59 mL/min/1.73m2 Moderately to severely decreased 30 - 44 mL/min/1.73m2 Severely decreased 15 - 29 mL/min/1.73m2 Kidney Failure < 15 mL/min/1.73m2 *Relative to young adult level Estimated glomerular filtration rate is determined by the 2020 CKD-EPI equation recommended by the National Kidney Foundation (A Unifying Approach to GFR Estimation: Recommendations of the NKF-ASK Task Force on Reassessing the Inclusion of Race in Diagnosing Kidney Disease, JASN 2020). The CKD-EPI equation should not be used for patients with unstable renal function and has not been validated in children and those over 70. Current interpretive data was last reviewed 2021. Blood 02/25/2025 11:4 6 AM CDT 02/25/2025 9:19 PM CDT us Michael De La Torre MD LAB BLOOD ORDERABLES Final Result [facility] [id number] Department [place] [address] * Differential, auto (02/25/2025 11:46 AM CDT) Neutrophil abs 3.2 1.5 - 6.5 K/cumm Imm gran abs 0.0 0.0 - 0.1 K/cumm [facility] Lymphocyte abs 1.7 0.8 - 3.3 K/cumm [facility] Monocyte abs 0.8 0.2 - 0.8 K/cumm [facility] Eosinophil abs 0.2 0.0 - 0.5 K/cumm [facility] Basophil abs 0.0 0.0 - 0.1 K/cumm [facility] Neutrophil pct 53.8 % [facility] Comment: Interpretive Data Percent cell count reference ranges are not reported, since discordance with absolute values may lead to misinterpretation of CBC data. Current Interpretive Data was last revised on 2018. Imm gran pct 0.0 % [facility] Comment: Interpretive Data Percent cell count reference ranges are not reported, since discordance with absolute values may lead to misinterpretation of CBC data. Current Interpretive Data was last revised on 2018. Lymphocyte pct 28.8 % [facility] Comment: Interpretive Data Percent cell count reference ranges are not reported, since discordance with absolute values may lead to misinterpretation of CBC data. Current Interpretive Data was last revised on 2018. Monocyte pct 14.0 % [facility] Comment: Interpretive Data Percent cell count reference ranges are not reported, since discordance with absolute values may lead to misinterpretation of CBC data. Current Interpretive Data was last revised on 2018. Eosinophil pct 3.1 % [facility] Comment: Interpretive Data Percent cell count reference ranges are not reported, since discordance with absolute values may lead to misinterpretation of CBC data. Current Interpretive Data was last revised on 2018. Basophil pct 0.3 % [facility] Comment: Interpretive Data Percent cell count reference ranges are not reported, since discordance with absolute values may lead to misinterpretation of CBC data. Current Interpretive Data was last revised on 2018. Blood 02/25/2025 11:4 6 AM CDT 02/25/2025 8:47 PM CDT us Michael De La Torre MD LAB BLOOD ORDERABLES Final Result [facility] [address] [place] [address] * Thyroid Function [place] (02/25/2025 11:46 AM CDT) TSH 3.57 0.30 - 4.20 mcIUnit/mL Blood 02/25/2025 11:4 6 AM CDT 02/25/2025 8:47 PM CDT Michael De La Torre MD LAB BLOOD ORDERABLES Final Result Performing Organization Address City/[facility] Co de Phone Number [facility] [address] [place] [address] * (ABNORMAL) CBC with auto differential (02/25/2025 11:46 AM CDT) Pathologist [facility] WBC 5.9 3.8 - 9.9 K/cumm Hgb 12.8(L) 13.0 - 17.5 g/dL [facility] Hct 39.5 38.9 - 50.3 % [facility] Plt 152 150 - 400 K/cumm [facility] MPV 11.9 9.1 - 12.3 fL [facility] RBC 3.98(L) 4.30 - 5.80 M/cumm [facility] CH MCV 99.2(H) 81.3 - 96.4 fL [facility] MCH 32.2 27.1 - 33.3 pg [facility] MCHC 32.4 32.3 - 35.7 g/dL [facility] CH RDW CV 13.6 11.1 - 14.9 % [facility] RDW SD 49.6(H) 35.7 - 48.1 fL [facility] NRBC abs 0.00 0.00 - 0.01 K/cumm [facility] Blood 02/25/2025 11:4 6 AM CDT 02/25/2025 8:47 PM CDT Michael De La Torre MD LAB BLOOD ORDERABLES Final Result Performing Organization Address City/[facility]/ZIP Co de Phone Number [facility] [address] [place] [address] * Vitamin D 25 hydroxy (02/25/2025 11:46 AM CDT) Vitamin D 25-OH 56 30 - 80 ng/mL Blood 02/25/2025 11:4 6 AM CDT 02/25/2025 8:47 PM CDT Michael De La Torre MD LAB BLOOD ORDERABLES Final Result Performing Organization Address [facility] de Phone Number [facility] [phone] Department [place] [address] * (ABNORMAL) Hemoglobin A1c (02/25/2025 11:46 AM CDT) Hgb A1C 5.7(H) 4.0 - 5.6 % Estimated Average Glucose 117 mg/dL [facility] Comment: The ADA recommends reporting an estimated Average Glucose (eAG) with all Hemoglobin A1c results using the equation derived from a study of 507 normal and diabetic adults. Minority populations were underrepresented and children were not included. (Diabetes Care 31:2375-7716, 2008). The eAG is not equivalent to a fasting glucose. Blood 02/25/2025 11:4 6 AM CDT 02/25/2025 8:47 PM CDT Result [facility] Michael De La Torre MD LAB BLOOD ORDERABLES Final Result Performing Organization Address [facility] de Phone Number [facility] [place] [phone] Department [place] [address] * (ABNORMAL) Lipid panel (02/25/2025 11:46 AM CDT) Cholesterol 92 30 - 199 mg/dL Comment: Interpretive Data Ages < or = 19 years Acceptable: <170 mg/dL Borderline high: 170-199 mg/dL High: >or= 200 mg/dL Ages > or = 20 years Desirable: <200 mg/dL Borderline high: 200-239 mg/dL High: >or= 240 mg/dL Literature References: 1. Expert Panel on Integrated Guidelines for Cardiovascular Health and Risk Reduction in Children and Adolescents. Pediatrics 2011;128:S213 2. NCEP Expert Panel. Circulation 2004;110:227 Current Interpretive Data was last revised on 2018. Triglycerides 45 <=149 mg/dL [facility] Comment: Interpretive Data Ages < or = 9 years Acceptable: <75 mg/dL Borderline high: 75-99 mg/dL High: >or= 100 mg/dL Ages 10 to 20 years Acceptable: <90 mg/dL Borderline high: 90-129 mg/dL High: >or= 130 mg/dL Ages > or = 20 years Desirable: <150 mg/dL Borderline high: 150-199 mg/dL High: 200-499 mg/dL Very high: >or= 499 mg/dL Literature References: 1. Expert Panel on Integrated Guidelines for Cardiovascular Health and Risk Reduction in Children and Adolescents. Pediatrics 2011;128:S213 2. NCEP Expert Panel. Circulation 2004;110:227 Current Interpretive Data was last revised on 2018. HDL 38(L) >=40 mg/dL [facility] Comment: Interpretive Data Ages < or = 19 years Acceptable: >45 mg/dL Borderline low: 40-45 mg/dL Low: <40 mg/dL Ages > or = 20 years Desirable: >or= 60 mg/dL Low: <40 mg/dL Literature References: 1. Expert Panel on Integrated Guidelines for Cardiovascular Health and Risk Reduction in Children and Adolescents. Pediatrics 2011;128:S213 2. NCEP Expert Panel. Circulation 2003;110:227 Current Interpretive Data was last revised on 2018. LDL, calculated 42 <=129 mg/dL [facility] Comment: Interpretive Data Ages < or = 19 years Acceptable: <110 mg/dL Borderline high: 110-129 mg/dL High: >or= 130 mg/dL Ages > or = 20 years Optimal: <100 mg/dL Near optimal: 100-129 mg/dL Borderline high: 130-159 mg/dL High: >160 mg/dL Calculated using the Adrian LDL-C estimating equation. This equation was implemented on 2024. Prior to this date LDL-C was estimated using the Friedewald equation. Literature References: 1. Expert Panel on Integrated Guidelines for Cardiovascular Health and Risk Reduction in Children and Adolescents. Pediatrics 2011;128:S213 2. NCEP Expert Panel. Circulation 2003;110:227 3. Campbell M et al. CHELE Cardiol. 2019March 31;5(5):540-548. doi: 10.1001/[email or web address].2020.0013 Current Interpretive Data was last revised on 2024. Non-HDL Cholesterol 54 mg/dL [facility] Comment: Interpretive Data Ages < or = 19 years Acceptable: <120 mg/dL Borderline high: 120-144 mg/dL High: >145 mg/dL Ages > or = 20 years When triglycerides are >200 mg/dL, Non-HDL cholesterol is a secondary target of therapy with treatment goals that are 30 mg/dL greater than the LDL cholesterol target. Literature References: 1. Expert Panel on Integrated Guidelines for Cardiovascular Health and Risk Reduction in Children and Adolescents. Pediatrics 2011;128:S213 2. NCEP Expert Panel. Circulation 2004;110:227 Current Interpretive Data was last revised on 2018. Chol/HDL ratio 2 [facility] CH Blood 02/25/2025 11:4 6 AM CDT 02/25/2025 8:47 PM CDT us Michael De La Torre MD LAB BLOOD ORDERABLES Final Result [facility] [address] [place] [address] * (ABNORMAL) Comprehensive metabolic panel (02/25/2025 11:46 AM CDT) Sodium 144 135 - 145 mmol/L Potassium, pl 4.3 3.3 - 4.9 mmol/L [facility] Chloride 104 97 - 110 mmol/L [facility] CO2 27 22 - 32 mmol/L [facility] Anion gap 13 2 - 15 mmol/L [facility] BUN 8 6 - 25 mg/dL [facility] Creatinine 0.78(L) 0.80 - 1.30 mg/dL [facility] Glucose 83 70 - 199 mg/dL [facility] Comment: Interpretive Data Fasting glucose >/= 126 mg/dl is diagnostic for diabetes. Fasting is defined as no caloric intake for at least 8 hours. Fasting glucose between 100 mg/dl to 125 mg/dl is diagnostic of prediabetes. In a patient with classic symptoms of hyperglycemia or hyperglycemic crisis, a random glucose >/= 200 mg/dl is diagnostic for diabetes. In the absence of unequivocal hyperglycemia, results should be confirmed by repeat testing. The classification and Diagnosis of Diabetes Diabetes Care 2021; 46: S19-S40. Current interpretive data was last revised 2022. Calcium 9.1 8.5 - 10.3 mg/dL [facility] Bilirubin, total 0.5 0.1 - 1.2 mg/dL [facility] Protein, pl 7.1 6.5 - 8.5 g/dL [facility] Albumin 3.9 3.5 - 5.0 g/dL [facility] Alk phos 101 40 - 130 Units/L [facility] ALT 24 7 - 55 Units/L [facility] AST 37 10 - 50 Units/L [facility] Blood 02/25/2025 11:4 6 AM CDT 02/25/2025 8:47 PM CDT Michael De La Torre MD LAB BLOOD ORDERABLES Final Result Performing Organization Address [facility] de Phone Number [facility] [address] [place] [address] * Albumin Creatinine Ratio, Urine (06/20/2023 2:02 PM CDT) Albumin Ur <12.0 mg/L [facility] Comment: Interpretive Data No reference range established. Current interpretive data was last revised 2019. Creatinine Ur 133.5 mg/dL [facility] Comment: Interpretive Data No reference range established. Current interpretive data was last revised 2019. Albumin Creatinine Ratio, Ur <9 1 - 29 mg/g [facility] Urine 06/20/2023 2:0 2 PM CDT 06/20/2023 7:18 PM CDT Michael De La Torre MD LAB URINE ORDERABLES Final Result Performing Organization Address [facility] de Phone Number [facility] [id number] [address] [place] [place] [address] * Stool DNA - Cologuard (06/15/2022 8:45 AM CDT) Stool DNA - Cologuard Negative Negative [facility] (CLIA #:[id number]) Comment: NEGATIVE TEST RESULT. A negative Cologuard result indicates a low likelihood that a colorectal cancer (CRC) or advanced adenoma (adenomatous polyps with more advanced pre-malignant features) is present. The chance that a person with a negative Cologuard test has a colorectal cancer is less than 1 in 1500 (negative predictive value >99.9%) or has an advanced adenoma is less than 5.3% (negative predictive value 94.7%). These data are based on a prospective cross-sectional study of 10,000 individuals at average risk for colorectal cancer who were screened with both Cologuard and colonoscopy. (Oumar Avalos al, N Engl J Med 2014;370(14):9533-8833) The normal value (reference range) for this assay is negative. COLOGUARD RE-SCREENING RECOMMENDATION: Periodic colorectal cancer screening is an important part of preventive healthcare for asymptomatic individuals at average risk for colorectal cancer. Following a negative Cologuard result, the [place] [employer] and U.S. Multi-Society Task Force screening guidelines recommend a Cologuard re-screening interval of 3 years. References: [place] [employer] Guideline for Colorectal Cancer Screening: https://www.cancer.org/cancer/gshvm-uervmr-oqluwc/aazrcfyvx-tycxsftte-nyycvwj/ac s-rec ommendations.html.; Matthew DK, Wojciech CR, Aly WickK, Colorectal Cancer Screening: Recommendations for Physicians and Patients from the U.S. Multi-Society Task Force on Colorectal Cancer Screening , Am J Gastroenterology 2017; 112:2394-7053. TEST DESCRIPTION: Composite algorithmic analysis of stool DNA-biomarkers with hemoglobin immunoassay. Quantitative values of individual biomarkers are not reportable and are not associated with individual biomarker result reference ranges. Cologuard is intended for colorectal cancer screening of adults of either sex, 45 years or older, who are at average-risk for colorectal cancer (CRC). Cologuard has been approved for use by the U.S. FDA. The performance of Cologuard was established in a cross sectional study of average-risk adults aged 50-84. Cologuard performance in patients ages 45 to 49 years was estimated by sub-group analysis of near-age groups. Colonoscopies performed for a positive result may find as the most clinically significant lesion: colorectal cancer [4.0%], advanced adenoma (including sessile serrated polyps greater than or equal to 1cm diameter) [20%] or non- advanced adenoma [31%]; or no colorectal neoplasia [45%]. These estimates are derived from a prospective cross-sectional screening study of 10,000 individuals at average risk for colorectal cancer who were screened with both Cologuard and colonoscopy. (Oumar Avalos al, N Engl J Med 2014;370(14):3091-2040.) Cologuard may produce a false negative or false positive result (no colorectal cancer or precancerous polyp present at colonoscopy follow up). A negative Cologuard test result does not guarantee the absence of CRC or advanced adenoma (pre-cancer). The current Cologuard screening interval is every 3 years. ([place] [employer] and U.S. Multi-Society Task Force). Cologuard performance data in a 10,000 patient pivotal study using colonoscopy as the reference method can be accessed at the following location: www.[employer]/results. Additional description of the Cologuard test process, warnings and precautions can be found at www.[email or web address].com. Stool 06/15/2022 8:45 AM CDT 06/17/2022 6:58 AM CDT Michael De La Torre MD LAB BODY FLUIDS AND STOOLS ORDERABLES Final Result [facility] (CLIA #:[id number]) [address] [address] * Hepatitis C antibody (01/28/2022 3:06 PM PHARMACY MESSENGER) Hep C Ab Nonreactive Nonreactive [facility] Comment: Interpretive Data Nonreactive: Antibodies to HCV not detected. Does NOT exclude the possibility of recent exposure to HCV. Equivocal: Equivocal for HCV antibodies. Supplemental molecular testing will be automatically performed to determine infection status in accordance with current CDC screening recommendations. Reactive: Positive for HCV antibodies. This may represent current or past HCV infection. Supplemental molecular testing will be automatically performed to determine current infection status in accordance with current CDC screening recommendations. Interpretive data was last revised on 2020. Blood 01/28/2022 3:06 PM PHARMACY MESSENGER 01/28/2022 8:18 PM PHARMACY MESSENGER Michael De La Torre MD LAB MICROBIOLOGY - GENERAL ORDERABLES Final Result Performing Organization Address City/[place] [address] [address] [place] [address] from Last 3 Months or Most Recently Relevant to Health Maintenance Insurance MEDICARE [employer] [place] [address] MEDICARE [employer] LIFE Care Teams Wage Adjuster Relationship Specialty Start Date End Date Michael De La Torre MD [address] [place] [address] PCP - General Family Medicine 01/28/22 Jacqueline Matias DC [address] [place] [address] Referring Physician Chiropractic Medicine 01/28/22 Jose Jeffries MD [address] [facility] [address] [place] [address] Consulting Physician Cardiology 01/28/22 Jaswinder [place] [address] Optometry 08/28/22
--- OUTSIDE RECORDS SUMMARY | 2025-05-19 12:25 | XMS_ITS | Clinical Summary ---
Author Organization [facility] [place] [address] [place] [address] 162 Address [address] [facility] [address] [place] [address] Care Team Providers Care Barrel Filler Head Name Role Phone Michael De La Torre MD Primary Care Provider [phone] Jacqueline Matias DC Unavailable + Jose Jeffries MD Unavailable [phone] Jaswinder Kaplan OD Unavailable [phone] Allergies No known active allergies Medications blood glucose diagnostic (glucose blood) stripIndications: Type 2 diabetes mellitus with diabetic polyneuropathy, without long-term current use of insulin ([facility]) For at-home monitoring of blood glucose E11.65 100 each 01/28/20 Active lancets miscIndications:T ype 2 diabetes mellitus with diabetic polyneuropathy, without long-term current use of insulin ([facility]) Check blood sugar 1-2 times a day or as directed. E11.65 100 each 01/28/20 22 Active nitroglycerin (NITROSTAT) 0.4 mg SL tabletIndications :acute episode of anginal pain Place 1 tablet (0.4 mg total) under the tongue every 5 (five) minutes as needed for chest pain 90 tablet 01/30/20 Active vitamins A,C,D-quvj-egphzt (ICaps AREDS) [id number],[id number] ovdr-we-cfsx capsule Take by mouth Active vit C/E/zinc [...] 1 TABLET DAILY 90 tablet 3 02/01/20 25 Active clopidogreL (PLAVIX) 75 mg tablet TAKE 1 TABLET DAILY 90 tablet 1 02/20/20 25 Active NON FORMULARY, FOR CLINIC ADMINISTERED MEDICATIONS ONLY, (not in database) 10/01/20 24 Active levothyroxine (SYNTHROID) 50 mcg tabletIndications :Subclinical hypothyroidism Take 1 tablet (50 mcg total) by mouth daily 90 tablet 4 02/26/20 25 Active pregabalin (LYRICA) 100 mg capsuleIndication s:Type 2 diabetes mellitus with diabetic polyneuropathy, without long-term current use of insulin (HCC) TAKE 1 CAPSULE TWICE A DAY 60 capsule 3 03/25/20 25 Active atorvastatin (LIPITOR) 20 mg tablet TAKE 1 TABLET DAILY 90 tablet 04/18/20 25 2024 Active Ambien CR 12.5 mg CR tabletIndications :Other insomnia TAKE 1 TABLET NIGHTLY NEEDED FOR SLEEP 90 tablet 1 05/06/20 25 Active metoprolol tartrate (LOPRESSOR) 50 mg immediate [...] 03/20/2023 Assessment & Plan (11/21/2024 7:23 PM MEDIA/INSTRUCTIONAL DESIGNER): BMI Follow-up includes: nutrition counseling, exercise counseling, and education provided. FDC current use of anticoagulant Chronic midline low [...] months Assessment & Plan (01/28/2022 4:42 PM MEDIA/INSTRUCTIONAL DESIGNER): A initial well visit to establish care [...] [employer]. Coronary artery disease invo lving yurok coronary artery of yurok heart without angina pectoris 11/13/2017 CAD S/P percutaneous coronary angioplasty 2016 Encounters Date Type Department Care Team Description 02/28/2025 Telephone [facility] Primary Care at [address] [address] Michael De La Torre MD albumin creatine ratio order 02/26/2025 Results Follow-Up [facility] Primary Care at [address] [address] Michael De La Torre MD Thyroid Function [place], Hemoglobin A1c, Lipid panel, Additional followed-up results: 5 02/25/2025 11:46 AM CDT - 02/25/2025 11:59 PM CDT Hospital Encounter [facility] [address] [id number] Hypertension associated with diabetes (HCC); Type 2 diabetes mellitus with hyperlipidemia (HCC); Coronary artery disease involving yurok coronary artery of yurok heart without angina pectoris; Morbid (severe) obesity due to excess calories (HCC); Body mass index (BMI) 31.0-31.9, adult Discharge Disposition: Discharge to home or self care 02/25/2025 11:45 AM CDT Lab [facility] Outpatient Lab at [address] [address] Type 2 diabetes mellitus with hyperlipidemia (HCC) (Primary Dx); Hypertension associated with diabetes (HCC) 02/25/2025 11:00 AM CDT Office Visit [facility] Primary Care at [address] [address] Michael De La Torre MD Hypertension associated with diabetes (HCC) (Primary Dx); Coronary artery disease involving yurok coronary artery of yurok heart without angina pectoris; Type 2 diabetes mellitus with hyperlipidemia (HCC); Morbid (severe) obesity due to excess calories (HCC); Subclinical hypothyroidism from Last 3 Months Immunizations Immunization Administration Dates Next Due Anthrax [...] Patient Refused),12/01/2021(Deferred: Patient Refused) Influenza, Whole 11/04/1998 Arabic Encephalitis 03/28/1999,03/08/1999,01/31 Meningococcal Polysaccharide (Menomune) 08/01/1997 OPV 03/31/1956 Pfizer SARS-CoV-2 Monovalent Vaccination (12+ Yrs) PURPLE 03/02/2021,02/08/2021 Pneumococcal Conjugate PCV 13 10/01/2018, 018 Pneumococcal Conjugate Pcv20 10/20/2024 Pneumococcal Polysaccharide PPV23 12/01/2012 RSV Vaccine, Pref, Recombina nt, Subunit, Adjuvanted, PF, IM (Arexvy) 10/20/2024 Td, adsorbed 03/31/1995 Tdap 03/20/2019,02/06/2007 Typhoid Live 02/26/1999 Typohid AKD SQ 08/01/1997 Yellow Fever 05/01/1991 Surgical History Surgery Date Site/Laterality Comments FINGER SURGERY 2 finger tips ORTHOPEDIC SURGERY ANGIOPLASTY 2006 Medical History Medical History Date Comments Hypertension Hypertension Hx Other Medical Diabetes Type I I Sleep difficulties Depression Dec, 2022 Deaths of 3 close friends Hyperlipidemia Cervical spondylosis with radiculopathy 01/28/2022 Brain concussion October, Falls on Ice. Thyroid disease March, Infection Molar, bacterial inf ection January, Arthritis 2014 Family History Medical History Relation Name Comments Heart attack Father Tejinder Zaragoza Myocardial Infarction; Cause of : Myocardial Infarction Stroke Father Tejinder Zaragoza Cancer Mother Angelica Zaragoza Coronary artery disease Mother Angelica Hassan r Coronary Artery Disease; Cause of : Coronary Artery Disease Diabetes Mother Angelica Zaragoza Hearing loss Mother Angelica Zaragoza Obesity Mother Angelica Zaragoza Relation Name Status Comments Father Tejinder Zaragoza (Age 87) Mother Angelica Zaragoza (Age 83) Sister (Age 57) Social History Tobacco Use Types Packs/Day Years [...] on file Legal Sex Male 1:59 AM MEDIA/INSTRUCTIONAL DESIGNER Gender Identity Male 04/14/2024 3:40 PM CDT Sexual Orientation Straight 04/14/2024 3: 42 PM CDT Occupation Industry Job Start Date Job End Date Not on file Not on file Not on file Not on file Obstetrics History Last Filed Vital Signs Vital Sign Reading [...] 02/25/2025 11:14 AM CDT Plan of Treatment Health Maintenance Due Date Last Done Comments Hepatitis B Screening 1963 Dilated Eye Exam 07/22/2023 07/22/2022 Albumin Creatinine Ratio, Urine 06/20/2024 06/20/2023, 01/29/2022 Covid-19 Vaccine ( season) 2025 10/20/2024, 08/28/2023, 10/02/2022, Additional history exists Well Visit 65+ 05/11/2025 05/11/2024, 03/20/2023 Hemoglobin A1C 08/28/2025 02/25/2025, 12/0 08/2024, 05/10/2024, Additional history exists Foot Exam 11/10/2025 11/10/2024, 10/31, 06/24/2023, Additional history exists Fall Risk Assessment 12/16/2025 12/16/2024, 11/10/2024, 05/11/2024, Additional history exists Depression Screening 02/25/2026 02/25/2025, 12/16/2024, 11/10/2024, Additional history exists Lipid Panel 02/25/2026 02/25/2025, 05/01, 02/21/2023, Additional history exists Zoster Vaccine (1 of 2) 02/25/2026 Post poned from 1995 (Insurance / Financial) eGFR 02/25/2026 02/25/2025, 05/01, 03/20/2023, Additional history exists DTaP/Tdap/Td Vaccine (3 - Td or Tdap) 03/20/2029 03/20/2019, 02/06/2007, 03/31/1995 Hepatitis C Screening Completed 01/28/2022 Colon Cancer Screening-DNA Stool Discontinued 06/15/2022 Colon Cancer Screening-FIT Discontinued 06/15/2022 Colon Cancer Screening-FOBT Discontinued 06/15/2022 Colorectal Cancer Screening Discontinued Influenza Vaccine Completed 10/20/2024, , 08/28/2023, Additional history exists Pneumococcal vaccine 65+ Completed 024, 10/01/2018, 09/30/2018, Additional history exists Colon Cancer Screening-CT Colonography Discontinued Colon Cancer Screening-Colonoscopy Discontinued Colon Cancer Screening-Sigmoidoscopy Discontinued Goals Goal Patient Goal Type Associated Problems [...] 11:46 AM CDT Coronary artery disease involving yurok coronary artery of yurok heart without angina pectoris Type 2 diabetes [...] HEPATITIS C ANTIBODY Routine 01/28/2022 3:06 PM MEDIA/INSTRUCTIONAL DESIGNER Encounter for hepatitis C screening test for [...] Torre MD LAB BLOOD ORDERABLES Final Result [facility] [address] Department [place] [address] * Differential, auto (02/25/2025 11:46 AM CDT) Neutrophil abs 3.2 1.5 - 6.5 K/cumm Imm gran abs 0.0 0.0 - 0.1 K/cumm [facility] Lymphocyte abs 1.7 0.8 - 3.3 K/cumm [facility] Monocyte abs 0.8 0.2 - 0.8 K/cumm [facility] Eosinophil abs 0.2 0.0 - 0.5 K/cumm [facility] Basophil abs 0.0 0.0 - 0.1 K/cumm [facility] Neutrophil pct 53.8 % [facility] Comment: Interpretive Data Percent cell count reference ranges are not reported, since discordance with absolute values may lead to misinterpretation of CBC data. Current Interpretive Data was last revised on 2018. Imm gran pct 0.0 % [facility] Comment: Interpretive Data Percent cell count reference ranges are not reported, since discordance with absolute values may lead to misinterpretation of CBC data. Current Interpretive Data was last revised on 2018. Lymphocyte pct 28.8 % [facility] Comment: Interpretive Data Percent cell count reference ranges are not reported, since discordance with absolute values may lead to misinterpretation of CBC data. Current Interpretive Data was last revised on 2018. Monocyte pct 14.0 % [facility] Comment: Interpretive Data Percent cell count reference ranges are not reported, since discordance with absolute values may lead to misinterpretation of CBC data. Current Interpretive Data was last revised on 2018. Eosinophil pct 3.1 % [facility] Comment: Interpretive Data Percent cell count reference ranges are not reported, since discordance with absolute values may lead to misinterpretation of CBC data. Current Interpretive Data was last revised on 2018. Basophil pct 0.3 % [facility] Comment: Interpretive Data Percent cell count reference ranges are not reported, since discordance with absolute values may lead to misinterpretation of CBC data. Current Interpretive Data was last revised on 2018. Blood 02/25/2025 11:4 6 AM CDT 02/25/2025 8:47 PM CDT Michael De La Torre MD LAB BLOOD ORDERABLES Final Result Performing Organization Address [facility] Co de Phone Number KRYSTIN REYNAGA [address] [employer] [place], [place] [id number] * Thyroid Function [place] (02/25/2025 11:46 AM CDT) Pathologist [facility] TSH 3.57 0.30 - 4.20 mcIUnit/mL Blood 02/25/2025 11:4 6 AM CDT 02/25/2025 8:47 PM CDT Michael De La Torre MD LAB BLOOD ORDERABLES Final Result Performing Organization Address City/[facility] Co de Phone Number KRYSTIN [address] [employer] [place], [place] [id number] * (ABNORMAL) CBC with auto differential (02/25/2025 11:46 AM CDT) WBC 5.9 3.8 - 9.9 K/cumm Hgb 12.8(L) 13.0 - 17.5 g/dL [facility] Hct 39.5 38.9 - 50.3 % [facility] Plt 152 150 - 400 K/cumm [facility] MPV 11.9 9.1 - 12.3 fL [facility] RBC 3.98(L) 4.30 - 5.80 M/cumm [facility] MCV 99.2(H) 81.3 - 96.4 fL [facility] MCH 32.2 27.1 - 33.3 pg [facility] MCHC 32.4 32.3 - 35.7 g/dL [facility] RDW CV 13.6 11.1 - 14.9 % [facility] RDW SD 49.6(H) 35.7 - 48.1 fL [facility] NRBC abs 0.00 0.00 - 0.01 K/cumm [facility] Blood 02/25/2025 11:4 6 AM CDT 02/25/2025 8:47 PM CDT Michael De La Torre MD LAB BLOOD ORDERABLES Final Result Performing Organization Address City/[facility]/ZIP Co de Phone Number [facility] [address] [place] [address] * Vitamin D 25 hydroxy (02/25/2025 11:46 AM CDT) Pathologist [facility] Vitamin D 25-OH 56 30 - 80 ng/mL Blood 02/25/2025 11:4 6 AM CDT 02/25/2025 8:47 PM CDT Michael De La Torre MD LAB BLOOD ORDERABLES Final Result Performing Organization Address City/[facility] Co de Phone Number [facility] [address] [place] [address] * (ABNORMAL) Hemoglobin A1c (02/25/2025 11:46 AM CDT) Pathologist [facility] Hgb A1C 5.7(H) 4.0 - 5.6 % Estimated Average Glucose 117 mg/dL [facility] Comment: The ADA recommends reporting an estimated Average Glucose (eAG) with all Hemoglobin A1c results using the equation derived from a study of 507 normal and diabetic adults. Minority populations were underrepresented and children were not included. (Diabetes Care 31:8644-2902, 2008). The eAG is not equivalent to a fasting glucose. Blood 02/25/2025 11:4 6 AM CDT 02/25/2025 8:47 PM CDT us Michael De La Torre MD LAB BLOOD ORDERABLES Final Result KRYSTIN RONNELL [address] Department [place] [address] * (ABNORMAL) Lipid panel (02/25/2025 11:46 AM [...] on 2018. Triglycerides 45 <=149 mg/dL [facility] REYNA[facility] Comment: Interpretive Data Ages < or = [...] on 2018. HDL 38(L) >=40 mg/dL [facility] Comment: Interpretive Data Ages < or = [...] 2018. LDL, calculated 42 <=129 mg/dL [facility] REYNAGA Comment: Interpretive Data Ages < or = [...] 2011;128:S213 2. NCEP Expert Panel. Circulation 2004;110:227 3. Adrian M et al. CHELE Cardiol. 2019March 31;5(5):540-548. doi: 10.1001/jamacardio.2020.0013 Current Interpretive Data was last revised on 2024. Non-HDL Cholesterol 54 mg/dL [facility]ST[facility] REYNAGA Comment: Interpretive Data Ages < or = [...] last revised on 2018. Chol/HDL ratio 2 KRYSTIN REYNAGA Blood 02/25/2025 11:4 6 AM CDT 02/25/2025 8:47 PM CDT us Michael De La Torre MD LAB BLOOD ORDERABLES Final Result K[facility]ST[facility] REYNAGA [address] Department [place] [address] * (ABNORMAL) Comprehensive metabolic panel (02/25/2025 11:46 AM CDT) Sodium 144 135 - 145 mmol/L Potassium, pl 4.3 3.3 - 4.9 mmol/L [facility] Chloride 104 97 - 110 mmol/L [facility] CO2 27 22 - 32 mmol/L [facility] Anion gap 13 2 - 15 mmol/L [facility] BUN 8 6 - 25 mg/dL [facility] Creatinine 0.78(L) 0.80 - 1.30 mg/dL [facility] Glucose 83 70 - 199 mg/dL [facility] Comment: Interpretive Data Fasting glucose >/= 126 [...] classification and Diagnosis of Diabetes Diabetes Care 202; 46: S19-S40. Current interpretive data was last revised 2022. Calcium 9.1 8.5 - 10.3 mg/dL [facility] Bilirubin, total 0.5 0.1 - 1.2 mg/dL [facility] Protein, pl 7.1 6.5 - 8.5 g/dL [facility] Albumin 3.9 3.5 - 5.0 g/dL [facility] Alk phos 101 40 - 130 Units/L [facility] ALT 24 7 - 55 Units/L [facility] AST 37 10 - 50 Units/L [facility] Blood 02/25/2025 11:4 6 AM CDT 02/25/2025 8:47 PM CDT us Michael De La Torre MD LAB BLOOD ORDERABLES Final Result [facility] [address] Department [place] [address] * Albumin Creatinine Ratio, Urine (06/20/2023 2:02 PM CDT) Albumin Ur <12.0 mg/L [facility] Comment: Interpretive Data No reference range established. Current interpretive data was last revised 2019. Creatinine Ur 133.5 mg/dL [facility] Comment: Interpretive Data No reference range established. Current interpretive data was last revised 2019. Albumin Creatinine Ratio, Ur <9 1 - 29 mg/g [facility] Urine 06/20/2023 2:02 PM CDT 06/20/2023 7:18 PM CDT us Michael De La Torre MD LAB URINE ORDERABLES Final Result [facility] [address] Department [place] [address] * Stool DNA - Cologuard (06/15/2022 8:45 AM CDT) Pathologist [facility] Stool DNA - Cologuard Negative Negative [employer] (CLIA #:[id number]) Comment: NEGATIVE TEST RESULT. A negative Cologuard [...] screened with both Cologuard and colonoscopy. (Oumar Tellez et al, N Engl J Med 2014;370(14):4695-7816) The normal value (reference range) for this assay is negative. COLOGUARD RE-SCREENING RECOMMENDATION: Periodic colorectal cancer screening is an important part of preventive healthcare for asymptomatic individuals at average risk for colorectal cancer. Following a negative Cologuard result, the [place] Cancer Society and U.S. Multi-Society Task Force screening guidelines recommend a Cologuard re-screening interval of 3 years. References: [place] [employer] Guideline for Colorectal Cancer Screening: https://www.cancer.org/cancer/exkhw-mvjnny-bvngee/yixzcyqwo-ywsqexilo-kjcykmc/ac s-rec ommendations.html.; Matthew FRANK, Wojciech ACOSTA, Aly DUNHAM, Colorectal Cancer Screening: Recommendations for Physicians and Patients from the U.S. Multi-Society Task Force on Colorectal Cancer Screening , Am J Gastroenterology 2017; 112:6450-3983. TEST DESCRIPTION: Composite algorithmic analysis of stool [...] screened with both Cologuard and colonoscopy. (Oumar Cintron. et al, N Engl J Med 2014;370(14):4871-1101.) Cologuard may produce a false negative or false positive result (no colorectal cancer or precancerous polyp present at colonoscopy follow up). A negative Cologuard test result does not guarantee the absence of CRC or advanced adenoma (pre-cancer). The current Cologuard screening interval is every 3 years. ([place] [employer] and U.S. Multi-Society Task Force). Cologuard performance data in a 10,000 patient pivotal study using colonoscopy as the reference method can be accessed at the following location: www.[employer]/results. Additional description of the Cologuard test process, warnings and precautions can be found at www.cologuard.com. Stool 06/15/2022 8:45 AM CDT 06/17/2022 6:58 AM CDT Michael De La Torre MD LAB BODY FLUIDS AND STOOLS ORDERABLES Final Result Performing Organization Address [facility] Co de Phone Number [employer] (CLIA #:[id number]) [address] [place] [address] * Hepatitis C antibody (01/28/2022 3:06 PM MEDIA/INSTRUCTIONAL DESIGNER) Hep C Ab Nonreactive Nonreactive KRYSTIN REYNAGA [...] revised on 2020. Blood 01/28/2022 3:06 PM MEDIA/INSTRUCTIONAL DESIGNER 01/28/2022 8:18 PM MEDIA/INSTRUCTIONAL DESIGNER Result [facility] Michael De La Torre MD LAB MICROBIOLOGY - GENERAL ORDERABLES Final Result Performing Organization Address [facility] de Phone Number [facility] [address] Department [place] [address] from Last 3 Months or Most Recently Relevant to Health Maintenance Insurance MEDICARE FOR LIFE MEDICARE FOR LIFE MEDICARE FOR LIFE Care Teams Barrel Filler Head Relationship Specialty Start Date End Date Michael De La Torre MD [address] [place] [address] PCP - General Family Medicine 01/28/22 Jacqueline Matias DC [address] [place] [address] Referring Physician Chiropractic Medicine 01/28/22 Jose Jeffries MD [address] [place] [address] Consulting Physician Cardiology 01/28/22 Jaswinder Kaplan OD [address] [place] [address] Optometry 08/28/22
[2025-05-19 12:28] LABS: Basophils Percent Auto 0.2 % (0.2-1.2); Eosinophils Absolute Auto 0.2 K/mm3 (0-0.3); Eosinophils Percent Auto 1.8 % (0-4.4); Hematocrit 38.4 % (42.0-52.0); Hemoglobin 12.6 g/dL (14.0-18.0); Immature Granulocyte Absolute 0.02 K/mm3 (0.00-0.031); Immature Granulocyte Percent A 0.2 % (0-0.5); Immature Platelet Fraction Pct 8.5 % (0.9-11.2); Lymphocytes Absolute Auto 1.23 K/mm3 (0.9-3.2); Mean Corpuscular HGB Conc 32.8 g/dl (32-36); Mean Corpuscular Hemoglobin 32.1 pg (26-34); Mean Platelet Volume 10.7 fl (7.4-10.4); Monocytes Absolute Auto 0.9 K/mm3 (0.1-0.6); Monocytes Percent Auto 11.4 % (2.6-8.5); Neutrophils Absolute Auto 5.9 K/mm3 (1.3-6.7); Neutrophils Percent Auto 71.4 % (45.5-73.1); Platelet Count Result 132 k/mm3 (150-375); Red Blood Count 3.92 M/mm3 (4.6-6.20); Red Cell Distribution Width 13.6 % (11.5-14.5); White Blood Count 8.2 K/mm3 (4.5-10.0)
[2025-05-19 12:37] LABS: Alanine Aminotransferase 38 U/L (6-50); Albumin Level 3.7 g/dL (3.5-5.1); Alkaline Phosphatase 86 U/L (38-126); Anion Gap 6 mmol/L (4-12); Aspartate Amino Transferase 43 U/L (17-59); Bilirubin,Total 0.5 mg/dL (0.2-1.3); Blood Urea Nitrogen 15 mg/dL (9-20); Calcium 8.6 mg/dL (8.4-10.2); Carbon Dioxide 26 mmol/L (22-30); Chloride 105 mmol/L (98-107); Estimated CRCL calculation 58 ml/min; Estimated Glomerular Filt Rate > 60; Glucose 116 mg/dL (65-110); Potassium 4.2 mmol/L (3.4-5.0); Sodium 137 mmol/L (137-145); Total Protein 6.8 g/dL (6.3-8.2)
[2025-05-19 13:14] LABS: INR 1.1; Partial Thromboplastin Time 45.2 Seconds (22.3-36.8); Prothrombin Time 14.2 Seconds (11.1-14.7)
[2025-05-19 13:37] LABS: Troponin I < 0.012 ng/mL (0.000-0.034)
--- NOTE | 2025-05-19 14:25 | P.HP_ITS ---
H&P: HPI History of Present Illness Date/Time: 05/19/25 14:25 Chief Complaint: Passed out Narrative: 79-year-old male past medical history of TIA, gout, diabetes, hypertension, CAD and peripheral neuropathy presents the hospital after a syncopal event at [facility]. Patient states that he just passed out. Denies complaints prior to passing out. Patient was standing and talking to 2 other people on these lower ed him to the ground. Patient states that he thinks he was is blood sugar S he felt much better after drinking orange juice. He did not his head. He denies injury. Patient often gets off topic when talking and tends to ramble. The patient's blood pressure is soft 106/63, heart rate 54 pulse ox her present. Lab work shows anemia at 12.6 with no prior labs available, troponin negative, glucose 116. Review of Systems Review of Systems: 12 systems were reviewed and are negativ e except for as per HPI. FOR[facility]LY [facility], [facility] Past Medical History Medical History (Updated 05/19/25 @ 14:52 by Yumiko Dorman, COMMERCIAL LEASE ADMINISTRATOR) Peripheral neuropathy Bilateral knee pain Chronic low back pain Coronary artery disease Arthritis Diabetes Depression Hypertension History of transient ischemic attack (TIA) Gout Degenerative disc disease Surgical History Surgical History History of amputation of finger of left hand History of cardiac catheterization Hx of arthroscopy of left knee S/P laparoscopic fundoplication Family History Family History Mother Diabetes mellitus Family history of osteoarthritis Father Family history of dementia Other Family history of arthritis Family history of malignant neoplasm Social History Social History Smoking status: Never smoker Second hand tobacco smoke exposure: No Alcohol intake: current Alcohol use details: 1 glass of wine rarely Substance use: never Substance use type: does not use Do You Feel Safe in your Home?: Yes Lack of Transportation: No Lack of Food: Sometimes True Current Housing: I Have Housing Concerned About Future Housing: No Difficulty Paying Gas/Electric Bills: No Difficulty Paying for Meds: No Currently Unemployed: No Education: Master's Degree or Higher Difficulty w/ Childcare or Family Care: No Spiritual care concerns: No Meds Home Medications and Allergies Home Medications ?Medication ?Instructions ?Recorded ?Confirmed ?Type atorvastatin 20 mg tablet 20 mg PO DAILY 10/18/19 05/19/25 History metoprolol tartrate 50 mg tablet 50 mg PO BID 10/18/19 05/19/25 History glimepiride 1 mg tablet See Rx Instructions .Route 04/20/20 05/19/25 Rx .COMPLEX #90 tabs metformin 1,000 mg tablet 1,000 mg PO BID #180 tabs 05/10/20 05/19/25 Rx citalopram 20 mg tablet See Rx Instructions .Route 01/15/21 05/19/25 Rx .COMPLEX #90 tabs clopidogrel 75 mg tablet 75 mg PO DAILY #90 tabs 04/12/21 05/19/25 Rx gabapentin 100 mg capsule 100 mg PO BID 05/19/25 05/19/25 History levothyroxine 50 mcg tablet 50 mcg PO DAILY@0630 05/19/25 05/19/25 History pregabalin 100 mg capsule 100 mg PO BID 05/19/25 05/19/25 History valsartan 80 mg tablet 40 mg PO DAILY 05/19/25 05/19/25 History vit C 250 mg-vit E 90 mg-zinc 40 1 tablet PO BID 05/19/25 05/19/25 History mg-copper 1 [id number] capsule ([facility]S-2) zolpidem 12.5 mg tablet,extended 12.5 mg PO .QHS insomnia 05/19/25 05/19/25 History release,multiphase Allergies Allergy/AdvReac Type Severity Reaction Status Date / Time erythromycin base Allergy Unknown Unknown Verified 07/14/20 15:47 tetracycline Allergy Unknown Unknown Verified 07/14/20 15:47 Vital Signs Vital Signs - 24 hr 05/19/25 11:28 05/19/25 11:31 05/19/25 12:30 Temperature 97.8 F Pulse Rate 57 L 55 L 54 L Respiratory Rate 20 13 10 L Blood Pressure 91/56 L Pulse Oximetry 95 95 98 Oxygen Delivery Room Air 05/19/25 13:00 05/19/25 13:15 05/19/25 13:22 Temperature Pulse Rate 54 L 55 L 52 L Respiratory Rate 13 17 Blood Pressure Pulse Oximetry 96 97 Oxygen Delivery 05/19/25 13:23 05/19/25 13:25 05/19/25 13:27 Temperature Pulse Rate 54 L 55 L 58 L Respiratory Rate Blood Pressure 94/60 L 94/64 L 89/59 L Pulse Oximetry Oxygen Delivery 05/19/25 14:00 Temperature Pulse Rate 54 L Respiratory Rate 14 Blood Pressure 106/63 Pulse Oximetry 100 Oxygen Delivery Exam Narrative: General: well appearing, appears stated age. HEENT: normocephalic, atraumatic. Mucous membranes moist. EOMI, PERRLA, bilateral sclera anicteric, no conjunctival injection. Neck supple without JVD, lymphadenopathy, or bruit. Respiratory: clear to ascultation bilaterally. No rales/rhonic/wheezes. Cardiovascular: Regular rate and rhythm, normal S1-S2 upon ascultation. No murmurs, rubs, or clicks. PMI is nondisplaced, capillary refill less than 3 second. Abdomen: Soft, round, no pulsatile masses, nondistended and nontender. No rebound, no guarding. No CVA tenderness, no hepatosplenomegaly. Bowel sounds present to all four quadrants. No high pitch or tinkling sounds, resonant to percussion. Extremities: No cyanosis, clubbing, or edema present. Pulses are palpable 2/2. Active ROM to all four extremities. Neuro: Alert and orientated x 4. PERRLA. Cranial nerves 2-12 intact without focal deficit. Skin: Warm, dry, and intact, without rash, erythema, or lesion. Psych: pleasant, cooperative, normal speech, normal affect, no hallucinations, no dysarthia H&P: Results Labs Labs: Short CBC 05/19/25 Range/Units 12:22 WBC 8.2 (4.5-10.0) K/mm3 Hgb 12.6 L (14.0-18.0) g/dL Hct 38.4 L (42.0-52.0) % Plt Count 132 L (150-375) k/mm3 BMP 05/19/25 12:22 Sodium 137 Potassium 4.2 Chloride 105 Carbon Dioxide 26 BUN 15 Creatinine 0.94 Glucose 116 H Calcium 8.6 Cardiac Enzymes 05/19/25 Range/Units 12:20 Troponin I < 0.012 (0.000-0.034) ng/mL Liver Function 05/19/25 Range/Units 12:22 Total Bilirubin 0.5 (0.2-1.3) mg/dL AST 43 (17-59) U/L ALT 38 (6-50) U/L Alkaline Phosphatase 86 (38-126) U/L Albumin 3.7 (3.5-5.1) g/dL Assessment and Plan Assessment and plan (1) Syncope: Code(s): R55 - Syncope and collapse Status: Acute Assessment and Plan: Could be secondary to cardiac versus dehydration versus anemia versus other Telemetry monitoring Orthostatic vital signs Echo with bubble study IVF for hydration PT OT Will hold BP meds tonight (2) Anemia: Code(s): D64.9 - Anemia, unspecified Status: Acute Assessment and Plan: Anemia workup pending (3) Type 2 diabetes mellitus without complication, without long-term current use of insulin: Code(s): E11.9 - Type 2 diabetes mellitus without complications Status: Acute Assessment and Plan: Hold oral anti hyperglycemic medications Diabetic diet Accu-Chek a.c. HS SSI (4) Idiopathic chronic gout, unspecified site, without tophus (tophi): Qualifiers: Gout site: unspecified site Qualified Code(s): M1A.00X0 - Idiopathic chronic gout, unspecified site, without tophus (tophi) Code(s): M1A.00X0 - Idiopathic chronic gout, unspecified site, without tophus (tophi) Status: Acute Assessment and Plan: Okay for allopurinol (5) Dyslipidemia: Code(s): E78.5 - Hyperlipidemia, unspecified Status: Acute Assessment and Plan: Okay for statin (6) Essential (primary) hypertension: Code(s): I10 - Essential (primary) hypertension Status: Acute Assessment and Plan: Hold antihypertensives due to blood pressure being soft Orthostatics morning Quality VTE Prophylaxis VTE prophylaxis: mechanical ordered and pharmacologic ordered Hospitalist MIPS Advance Care Plan I have confirmed that the patient's Advanced Care Plan is present, code status is documented, or surrogate decision maker is listed in patient medical record.: Yes Medication Reconciliation I have utilized all available resources to obtain, update and review the patie nts current medications (includes all prescriptions, OTC, herbals, cannabis, and nutritional supplements).: Yes
--- NOTE | 2025-05-19 14:50 | ADMGEN ---
This patient, Jose Zaragoza, was admitted to [facility] Surg Room 326-01. Patient/family oriented to hospital policies and general routines including ID bracelet, bed and alarms, visiting hours, pain management, procedures, bathroom and other care routines, personal items, smoking policy, room service/diet, and visiting hours. Information on how to activate the Rapid Response Team has been discussed. Patient/Family are encouraged to report perceived risks to care and to ask questions if they do not understand what they are told or what they should do.
[2025-05-19] MEDS: SODIUM CHLORIDE 0.9% IV 1,000 ML 100 ML IV CONT (15:23)
[2025-05-19 16:34] LABS: Troponin I < 0.012 ng/mL (0.000-0.034)
[2025-05-19 20:48] LABS: Glucose Point of Care 131 mg/dl (65-105)
[2025-05-19] MEDS: METOPROLOL TARTRATE 50 MG TAB PO (22:00)
[2025-05-19] MEDS: GABAPENTIN 100 MG CAPSULE PO (22:00)
[2025-05-19] MEDS: PREGABALIN (*CRX) 50 MG CAPSULE 100 MG PO (22:02)
[2025-05-20] VITALS (12 sets, daily range): BP systolic 117–144; BP diastolic 65–86; PULSE 49–72; RESP 18–20; TEMP 35.9–36.4; O2SAT 99–100
--- NOTE | 2025-05-20 | ECHO_ITS ---
Patient Info Name: Jose Zaragoza Age: 79 years : 1945 Gender: Male Ht: 70 in Wt: 207 lbs BSA: 2.18 m2 HR: 58 bpm BP: 144 / 72 mmHg Heart Rhythm: Sinus Rhythm Technical Quality: Fair Exam Date: 05/20/2025 3:00 PM Patient Status: I Admit Date: 05/20/2025 Exam Type: CA echo dop bubble study w con Complete two-dimentional, color flow and Doppler transthoracic echocardiogram is performed with agitated saline and with contrast to opacify the left ventricle and to improve the delineation of the left ventricle endocardial borders. Staff Referring Physician: Bret Ulrich Sausage Wrapper: Gracie Hutchins Attending Provider: Luis De La Torre Contrast/Agitated Saline Contrast/Ag. Saline: Agitated Saline Amount: 20.00 ml Existing IV Access: Yes IV Access Condition: patent with no signs of infiltration Contrast/Ag. Saline: Definity Amount: 2.00 ml Administered By: Gracie Hutchins Existing IV Access: Yes IV Access Condition: patent with no signs of infiltration Summary 1. Technically somewhat difficult exam definity contrast utilized. 2. Normal left and right ventricular size and systolic contractility. 3. Grade 1 diastolic noncompliance. 4. No valvular abnormality. 5. Saline contrast injection was negative for shunt. Left Ventricle Left ventricular chamber dimension is normal. Left ventricular systolic function is normal, estimated at 65-70. The left ventricular diastolic function is grade I diastolic dysfunction. Right Ventricle Right ventricular chamber dimension is normal. Left Atria Left atrial chamber dimension is normal. Right Atria Right atrial chamber dimension is normal. Atrial Septum Intact interatrial septum visualized by agitated saline imaging. Aortic Valve The aortic valve is trileaflet. There is mild aortic valve sclerosis. Pulmonic Valve The pulmonic valve is not well visualized. Mitral Valve The mitral valve has normal leaflets. Tricuspid Valve The tricuspid valve leaflets are normal. Pericardium/Pleural The pericardium appears normal. Aorta The aortic root size at the sinus of Valsalva is normal. Left Ventricular Outflow Tract Name Value Normal LVOT 2D LVOT Diameter 2.1 cm LVOT Doppler LVOT Peak Velocity 110 cm/s LVOT Peak Gradient 5 mmHg LVOT Mean Gradient 3 mmHg LVOT VTI 25 cm LVOT VTI/AV VTI Ratio 0.7 LVOT Stroke Volume 83 ml LVOT CO 4.6 l/min LVOT CI 2.1 l/min/m2 Pulmonic Valve Name Value Normal RVOT Doppler RVOT Peak Velocity 54 cm/s RVOT Peak Gradient 1 mmHg PV Doppler PV Peak Velocity 103 cm/s PV Peak Gradient 4 mmHg Mitral Valve Name Value Normal MV Diastolic Function MV E Peak Velocity 76 cm/s MV A Peak Velocity 92 cm/s MV E/A 0.8 MV Decel Time (PW) 311 ms MV Annular TDI MV E/e' (Septal) 10.1 MV E/e' (Lateral) 11.4 MV E/e' (Average) 10.7 Tricuspid Valve Name Value Normal TV Regurgitation Doppler TR Peak Velocity 232 cm/s TR Peak Gradient 21 mmHg Estimated PAP/RSVP RA Pressure 10 mmHg <=5 PA Systolic Pressure 31 mmHg <36 RV Systolic Pressure 31 mmHg <36 TV Annular TDI TV Lateral Floresita s' Velocity 11.8 cm/s >=9.5 Aortic Valve Name Value Normal AV Doppler AV Peak Velocity 151 cm/s AV Peak Gradient 9 mmHg AV Mean Gradient 5 mmHg AV VTI 35 cm AV Area (Cont Eq VTI) 2.4 cm2 >=3.0 AV Area (Cont Eq Luis Felipe) 2.4 cm2 AV DI (Luis Felipe) 0.73 AV Regurgitation 2D LVOT Area 3.3 cm2 Ventricles Name Value Normal LV Dimensions 2D/MM IVS Diastolic Thickness (2D) 1.0 cm 0.6-1.0 LVID Diastole (2D) 5.3 cm 4.2-5.8 LVIW Diastolic Thickness (2D) 1.0 cm 0.6-1.0 LVID Systole (2D) 3.3 cm 2.5-4.0 LVOT Diameter 2.1 cm LV Mass (2D Cubed) 204.47 g 88.00-224.00 LV Mass Index (2D Cubed) 94 g/m2 49-115 Relative Wall Thickness (2D) 0.38 <=0.42 LV Fractional Shortening/Ejection Fraction 2D/MM LV Fractional Shortening (2D) 37 % 25-43 LV EF (2D Teichholz) 67 % LV Diastolic Volume (4C MOD) 86 ml LV EF (4C MOD) 80 % LV Diastolic Volume (2C MOD) 78 ml LV EF (2C MOD) 71 % LV Diastolic Volume (BP MOD) 82 ml 62-150 LV Diastolic Volume Index (BP MOD) 38 ml/m2 34-74 LV Systolic Volume (BP MOD) 20 ml 21-61 LV Systolic Volume Index (BP MOD) 9 ml/m2 11-31 LV EF (BP MOD) 75 % 52-72 LV Diastolic Length (4C) 8.4 cm LV Systolic Length (4C) 6.4 cm LV Stroke Volume (4C MOD) 69 ml Atria Name Value Normal LA Dimensions LA Volume (4C A-L) 90 ml LA Volume (BP A-L) 92 ml RA Dimensions RA Area (4C) 17.8 cm2 <=18.0 Report Signatures
[2025-05-20 06:39] LABS: Basophils Percent Auto 0.2 % (0.2-1.2); Eosinophils Absolute Auto 0.3 K/mm3 (0-0.3); Eosinophils Percent Auto 3.9 % (0-4.4); Hematocrit 37.2 % (42.0-52.0); Immature Granulocyte Absolute 0.01 K/mm3 (0.00-0.031); Immature Granulocyte Percent A 0.2 % (0-0.5); Immature Platelet Fraction Pct 8.4 % (0.9-11.2); Lymphocytes Absolute Auto 1.67 K/mm3 (0.9-3.2); Lymphocytes Percent Auto 26.1 % (18.3-44.2); Mean Corpuscular HGB Conc 32.3 g/dl (32-36); Mean Corpuscular Hemoglobin 31.9 pg (26-34); Mean Corpuscular Volume 98.9 fl (80-100); Mean Platelet Volume 11.7 fl (7.4-10.4); Monocytes Absolute Auto 0.9 K/mm3 (0.1-0.6); Monocytes Percent Auto 13.3 % (2.6-8.5); Neutrophils Absolute Auto 3.6 K/mm3 (1.3-6.7); Neutrophils Percent Auto 56.3 % (45.5-73.1); Platelet Count Result 118 k/mm3 (150-375); Red Blood Count 3.76 M/mm3 (4.6-6.20); Red Cell Distribution Width 13.5 % (11.5-14.5); White Blood Count 6.4 K/mm3 (4.5-10.0)
[2025-05-20] MEDS: LEVOTHYROXINE SODIUM 50 MCG TABLET PO (06:40)
[2025-05-20] MEDS: SODIUM CHLORIDE 0.9% IV 1,000 ML 100 ML IV CONT ×2 (06:42→21:02)
[2025-05-20 06:43] LABS: Iron 55 ug/dL (49-181)
[2025-05-20 06:53] LABS: Percent Iron Saturation 25 % (20-50)
[2025-05-20 07:18] LABS: Anion Gap 6 mmol/L (4-12); Blood Urea Nitrogen 12 mg/dL (9-20); Calcium 8.6 mg/dL (8.4-10.2); Carbon Dioxide 24 mmol/L (22-30); Chloride 108 mmol/L (98-107); Estimated CRCL calculation 69 ml/min; Estimated Glomerular Filt Rate > 60; Glucose 86 mg/dL (65-110); Potassium 3.9 mmol/L (3.4-5.0); Sodium 138 mmol/L (137-145); Transferrin 130 mg/dL (206-381)
[2025-05-20 08:01] LABS: Folic Acid 6.6 ng/mL (2.76->20)
[2025-05-20 08:08] LABS: Glucose Point of Care 75 mg/dl (65-105)
[2025-05-20] MEDS: GABAPENTIN 100 MG CAPSULE PO ×2 (09:05→17:38)
[2025-05-20] MEDS: CLOPIDOGREL BISULFATE 75 MG TABLET PO (09:05)
[2025-05-20] MEDS: METOPROLOL TARTRATE 50 MG TAB PO ×2 (09:05→20:56)
[2025-05-20] MEDS: CITALOPRAM HYDROBROMIDE 20 MG TABLET BY MOUTH (09:05)
[2025-05-20] MEDS: PREGABALIN (*CRX) 50 MG CAPSULE 100 MG PO ×2 (09:05→17:37)
[2025-05-20] MEDS: ENOXAPARIN 40 MG/0.4 ML SYRINGE SUB-Q (09:05)
[2025-05-20] MEDS: ATORVASTATIN 20 MG TABLET PO (09:05)
--- NOTE | 2025-05-20 11:32 | P.PNIM_ITS ---
Progress Note: A&P Assessment and Plan (1) Syncope: Code(s): R55 - Syncope and collapse Status: Acute Assessment and Plan: Could be secondary to cardiac versus dehydration versus anemia versus other Telemetry monitoring Orthostatic vital signs Echo with bubble study IVF for hydration PT OT Monitor closely (2) Anemia: Code(s): D64.9 - Anemia, unspecified Status: Acute Assessment and Plan: Anemia workup pending B12 slightly low Will start replacement therapy (3) Type 2 diabetes mellitus without complication, without long-term current use of insulin: Code(s): E11.9 - Type 2 diabetes mellitus without complications Status: Acute Assessment and Plan: Hold oral anti hyperglycemic medications Diabetic diet Accu-Chek a.c. HS SSI (4) Idiopathic chronic gout, unspecified site, without tophus (tophi): Qualifiers: Gout site: unspecified site Qualified Code(s): M1A.00X0 - Idiopathic chronic gout, unspecified site, without tophus (tophi) Code(s): M1A.00X0 - Idiopathic chronic gout, unspecified site, without tophus (tophi) Status: Acute Assessment and Plan: Okay for allopurinol (5) Dyslipidemia: Code(s): E78.5 - Hyperlipidemia, unspecified Status: Acute Assessment and Plan: Okay for statin (6) Essential (primary) hypertension: Code(s): I10 - Essential (primary) hypertension Status: Acute Assessment and Plan: Hold antihypertensives due to blood pressure being soft Orthostatics morning Subjective Date/time seen: 05/20/25 11:32 Interval history: Patient was seen during the morning rounds. Feeling ok. No sob or chest pain Review of Systems Review of Systems: 12 systems were reviewed and are negativ e except for as per HPI. Exam Narrative: General: well appearing, appears stated age. HEENT: normocephalic, atraumatic. Mucous membranes moist. EOMI, PERRLA, bilateral sclera anicteric, no conjunctival injection. Neck supple without JVD, lymphadenopathy, or bruit. Respiratory: clear to ascultation bilaterally. No rales/rhonic/wheezes. Cardiovascular: Regular rate and rhythm, normal S1-S2 upon ascultation. No murmurs, rubs, or clicks. PMI is nondisplaced, capillary refill less than 3 second. Abdomen: Soft, round, no pulsatile masses, nondistended and nontender. No rebound, no guarding. No CVA tenderness, no hepatosplenomegaly. Bowel sounds present to all four quadrants. No high pitch or tinkling sounds, resonant to percussion. Extremities: No cyanosis, clubbing, or edema present. Pulses are palpable 2/2. Active ROM to all four extremities. Neuro: Alert and orientated x 4. PERRLA. Cranial nerves 2-12 intact without focal deficit. Skin: Warm, dry, and intact, without rash, erythema, or lesion. Psych: pleasant, cooperative, normal speech, normal affect, no hallucinations, no dysarthia Objective Data Vital Signs Vital Signs: Vital Signs - 24 hr 05/19/25 12:30 05/19/25 13:00 05/19/25 13:15 Temperature Pulse Rate 54 L 54 L 55 L Respiratory Rate 10 L 13 17 Blood Pressure Pulse Oximetry 98 96 97 Oxygen Delivery 05/19/25 13:22 05/19/25 13:23 05/19/25 13:25 Temperature Pulse Rate 52 L 54 L 55 L Respiratory Rate Blood Pressure 94/60 L 94/64 L Pulse Oximetry Oxygen Delivery 05/19/25 13:27 05/19/25 14:00 05/19/25 14:46 Temperature Pulse Rate 58 L 54 L Respiratory Rate 14 Blood Pressure 89/59 L 106/63 Pulse Oximetry 100 Oxygen Delivery Room Air 05/19/25 20:00 05/19/25 21:15 05/19/25 22:00 Temperature 35.8 C L Pulse Rate 56 L 60 80 Respiratory Rate 16 Blood Pressure 116/63 Pulse Oximetry 98 Oxygen Delivery 05/20/25 00:00 05/20/25 04:00 05/20/25 05:46 Temperature 36.1 C L Pulse Rate 72 55 L 58 L Respiratory Rate 20 Blood Pressure 144/72 H Pulse Oximetry 99 Oxygen Delivery 05/20/25 08:00 05/20/25 08:00 Temperature Pulse Rate 58 L 58 L Respiratory Rate 20 Blood Pressure Pulse Oximetry 99 Oxygen Delivery Room Air Intake/Output Intake/Output: Intake & Output 05/17/25 05/18/25 05/19/25 05/20/25 23:59 23:59 23:59 23:59 Intake Total 100 1240 Balance 100 1240 Meds/Results Medications: Active Medications Generic Name Dose Route Start Last Admin Trade Name Freq PRN Reason Stop Dose Admin Acetaminophen 650 mg 05/19/25 14:46 Acetaminophen 325 Mg Tablet PO Q4H PRN Mild Pain (1-3) or Fever Atorvastatin Calcium 20 mg 05/20/25 09:00 05/20/25 09:05 Atorvastatin 20 Mg Tablet PO 20 mg DAILY JUAN Administration Citalopram Hydrobromide 20 mg 05/20/25 09:00 05/20/25 09:05 Citalopram Hydrobromide 20 Mg Tablet BY MOUTH 20 mg DAILY JUAN Administration Clopidogrel Bisulfate 75 mg 05/20/25 09:00 05/20/25 09:05 Clopidogrel Bisulfate 75 Mg Tablet PO 75 mg DAILY JUAN Administration Dextrose 12.5 gm 05/19/25 14:50 Dextrose 50% 25 Gm/50 Ml Syringe IV PUSH PRN PRN Hypoglycemia Protocol Docusate Sodium 100 mg 05/19/25 14:46 Docusate Sodium 100 Mg Capsule PO BID PRN Constipation Enoxaparin Sodium 40 mg 05/20/25 09:00 05/20/25 09:05 Enoxaparin 40 Mg/0.4 Ml Syringe SUB-Q 40 mg DAILY JUAN Administration Gabapentin 100 mg 05/19/25 20:00 05/20/25 09:05 Gabapentin 100 Mg Capsule PO 100 mg BID JUAN Administration Glucagon 1 mg 05/19/25 14:50 Glucagon For Inj 1 Mg Vial IM PRN PRN Hypoglycemia Protocol Glucose 15 gm 05/19/25 14:50 Glucose Oral Gel 15 Gm Of Glucse In 37.5 Gm Tube PO PRN PRN Hypoglycemia Protocol Sodium Chloride 1,000 mls @ 100 mls/hr 05/19/25 14:50 05/20/25 06:42 Normal Saline Iv IV CONT 100 mls/hr .Q10H JUAN Administration Dextrose 1,000 mls @ 100 mls/hr 05/19/25 14:50 Dextrose 5% 1,000 Ml IVPB PRN PRN Hypoglycemia Protocol Insulin Aspart 2 - 5 units 05/19/25 17:00 05/20/25 09:10 Insulin Aspart (*Bkc) 100 Units/Ml SUB-Q Not Given TIDWM JUAN Protocol Levothyroxine Sodium 50 mcg 05/20/25 06:30 05/20/25 06:40 Levothyroxine Sodium 50 Mcg Tablet PO 50 mcg DAILY@0630 JUAN Administration Metoprolol Tartrate 50 mg 05/19/25 21:00 05/20/25 09:05 Metoprolol Tartrate 50 Mg Tab PO 50 mg Q12HR JUAN Administration Perflutren Lipid Microsphere 0 ml 05/19/25 14:49 Perflutren Lipid Microspheres 1.5 Ml Vial Diluted To 10 Ml Total Volume IV PUSH 05/22/25 14:50 ONCE PRN adequate visualization Protocol Pregabalin 100 mg 05/19/25 20:00 05/20/25 09:05 Pregabalin (*Crx) 50 Mg Capsule PO 100 mg BID JUAN Administration Zolpidem Tartrate 10 mg 05/21/25 21:00 Zolpidem Tartrate (*Crx) 5 Mg Tablet PO [facility] Radiology Results: ITS Impressions Chest X-Ray 05/19/25 12:15 Impression: 1: Left basilar atelectasis. Labs Labs: Laboratory Results - last 24 hr 05/19/25 05/19/25 05/19/25 12:20 12:22 12:23 WBC 8.2 RBC 3.92 L Hgb 12.6 L Hct 38.4 L MCV 98.0 MCH 32.1 MCHC 32.8 RDW 13.6 Plt Count 132 L MPV 10.7 H Immature Gran % (Auto) 0.2 Neut % (Auto) 71.4 Lymph % (Auto) 15.0 L Clarke % (Auto) 11.4 H Eos % (Auto) 1.8 Baso % (Auto) 0.2 Lymph # (Auto) 1.23 Clarke # (Auto) 0.9 H Eos # (Auto) 0.2 Baso # (Auto) 0.0 Abs Immat Gran (auto) 0.02 Absolute Neuts (auto) 5.9 Absolute Nucleated RBC 0.000 Nucleated RBC % 0.0 % Immature Plt Fraction 8.5 PT 14.2 INR 1.1 APTT 45.2 H Sodium 137 Potassium 4.2 Chloride 105 Carbon Dioxide 26 Anion Gap 6 BUN 15 Creatinine 0.94 Estim Creat Clear Calc 58 Estimated GFR > 60 Glucose 116 H POC Capillary Glucose Calcium 8.6 Iron TIBC % Saturation Transferrin Ferritin Total Bilirubin 0.5 AST 43 ALT 38 Alkaline Phosphatase 86 Troponin I < 0.012 Total Protein 6.8 Albumin 3.7 Vitamin B12 Folate TSH (Reflex) 05/19/25 05/19/25 05/20/25 15:52 20:11 06:23 WBC 6.4 RBC 3.76 L Hgb 12.0 L Hct 37.2 L MCV 98.9 MCH 31.9 MCHC 32.3 RDW 13.5 Plt Count 118 L MPV 11.7 H Immature Gran % (Auto) 0.2 Neut % (Auto) 56.3 Lymph % (Auto) 26.1 Clarke % (Auto) 13.3 H Eos % (Auto) 3.9 Baso % (Auto) 0.2 Lymph # (Auto) 1.67 Clarke # (Auto) 0.9 H Eos # (Auto) 0.3 Baso # (Auto) 0.0 Abs Immat Gran (auto) 0.01 Absolute Neuts (auto) 3.6 Absolute Nucleated RBC 0.000 Nucleated RBC % 0.0 % Immature Plt Fraction 8.4 PT INR APTT Sodium 138 Potassium 3.9 Chloride 108 H Carbon Dioxide 24 Anion Gap 6 BUN 12 Creatinine 0.78 Estim Creat Clear Calc 69 Estimated GFR > 60 Glucose 86 POC Capillary Glucose 131 H Calcium 8.6 Iron 55 TIBC 218 L % Saturation 25 Transferrin 130 L Ferritin 118.00 Total Bilirubin AST ALT Alkaline Phosphatase Troponin I < 0.012 Total Protein Albumin Vitamin B12 184.0 L Folate 6.6 TSH (Reflex) 1.700 05/20/25 08:05 WBC RBC Hgb Hct MCV MCH MCHC RDW Plt Count MPV Immature Gran % (Auto) Neut % (Auto) Lymph % (Auto) Clarke % (Auto) Eos % (Auto) Baso % (Auto) Lymph # (Auto) Clarke # (Auto) Eos # (Auto) Baso # (Auto) Abs Immat Gran (auto) Absolute Neuts (auto) Absolute Nucleated RBC Nucleated RBC % % Immature Plt Fraction PT INR APTT Sodium Potassium Chloride Carbon Dioxide Anion Gap BUN Creatinine Estim Creat Clear Calc Estimated GFR Glucose POC Capillary Glucose 75 Calcium Iron TIBC % Saturation Transferrin Ferritin Total Bilirubin AST ALT Alkaline Phosphatase Troponin I Total Protein Albumin Vitamin B12 Folate TSH (Reflex) Quality VTE Prophylaxis VTE prophylaxis: mechanical ordered and pharmacologic ordered
[2025-05-20 11:55] LABS: Glucose Point of Care 104 mg/dl (65-105)
[2025-05-20] MEDS: PERFLUTREN LIPID MICROSPHERES 1.5 ML VIAL DILUTED TO 10 ML TOTAL VOLUME IV PUSH (16:00)
--- NOTE | 2025-05-20 16:37 | IVDEFINITY ---
Prior to administration of IV Definity the patient was educated on the risks and benefits of the imaging enhancing agent including potential adverse side effects. The patient verbalized understanding. Allergies were verified. No exclusion criteria were identified and at least one of the following inclusion criteria were met: 1) physician request, 2) patient technically difficult to image (per the [place] [employer] guidelines of two or more segments not discernable within the apical view), or 3) questionable left ventricular function. ?
[2025-05-20 16:46] LABS: Glucose Point of Care 99 mg/dl (65-105)
[2025-05-20] MEDS: CYANOCOBALAMIN 1,000 MCG TABLET 1000 MCG PO (17:37)
[2025-05-20 21:12] LABS: Glucose Point of Care 122 mg/dl (65-105)
[2025-05-21 00:15] VITALS: PULSE 53
[2025-05-21] MEDS: ACETAMINOPHEN 325 MG TABLET 650 MG PO (00:46)
[2025-05-21 05:53] VITALS: BP 115/50; PULSE 59; RESP 20; TEMP 36.2; O2SAT 98
[2025-05-21] MEDS: LEVOTHYROXINE SODIUM 50 MCG TABLET PO (05:59)
[2025-05-21 08:00] VITALS: BP 115/50; PULSE 59; RESP 20; TEMP 36.2; O2SAT 98
--- NOTE | 2025-05-21 08:29 | P.PNIM_ITS ---
Progress Note: A&P Assessment and Plan (1) Syncope: Code(s): R55 - Syncope and collapse Status: Acute Assessment and Plan: Could be secondary to cardiac versus dehydration versus anemia versus other Telemetry monitoring Orthostatic vital signs Echo with bubble study IVF for hydration PT OT Monitor closely (2) Anemia: Code(s): D64.9 - Anemia, unspecified Status: Acute Assessment and Plan: Anemia workup pending B12 slightly low Will start replacement therapy (3) Type 2 diabetes mellitus without complication, without long-term current use of insulin: Code(s): E11.9 - Type 2 diabetes mellitus without complications Status: Acute Assessment and Plan: Hold oral anti hyperglycemic medications Diabetic diet Accu-Chek a.c. HS SSI (4) Idiopathic chronic gout, unspecified site, without tophus (tophi): Qualifiers: Gout site: unspecified site Qualified Code(s): M1A.00X0 - Idiopathic chronic gout, unspecified site, without tophus (tophi) Code(s): M1A.00X0 - Idiopathic chronic gout, unspecified site, without tophus (tophi) Status: Acute Assessment and Plan: Okay for allopurinol (5) Dyslipidemia: Code(s): E78.5 - Hyperlipidemia, unspecified Status: Acute Assessment and Plan: Okay for statin (6) Essential (primary) hypertension: Code(s): I10 - Essential (primary) hypertension Status: Acute Assessment and Plan: Hold antihypertensives due to blood pressure being soft Orthostatics morning Subjective Date/time seen: 05/21/25 08:29 Interval history: 79-year-old male past medical history of TIA, gout, diabetes, hypertension, CAD and peripheral neuropathy presents the hospital after a syncopal event at [facility] [place]. 05/21/2025 Review of Systems Review of Systems: 12 systems were reviewed and are negativ e except for as per HPI. Exam Narrative: General: well appearing, appears stated age. HEENT: normocephalic, atraumatic. Mucous membranes moist. EOMI, PERRLA, bilateral sclera anicteric, no conjunctival injection. Neck supple without JVD, lymphadenopathy, or bruit. Respiratory: clear to ascultation bilaterally. No rales/rhonic/wheezes. Cardiovascular: Regular rate and rhythm, normal S1-S2 upon ascultation. No murmurs, rubs, or clicks. PMI is nondisplaced, capillary refill less than 3 second. Abdomen: Soft, round, no pulsatile masses, nondistended and nontender. No rebound, no guarding. No CVA tenderness, no hepatosplenomegaly. Bowel sounds present to all four quadrants. No high pitch or tinkling sounds, resonant to percussion. Extremities: No cyanosis, clubbing, or edema present. Pulses are palpable 2/2. Active ROM to all four extremities. Neuro: Alert and orientated x 4. PERRLA. Cranial nerves 2-12 intact without focal deficit. Skin: Warm, dry, and intact, without rash, erythema, or lesion. Psych: pleasant, cooperative, normal speech, normal affect, no hallucinations, no dysarthia Objective Data Vital Signs Vital Signs: Vital Signs - 24 hr 05/20/25 11:01 05/20/25 11:20 05/20/25 11:53 Temperature Pulse Rate Respiratory Rate Blood Pressure 131/86 Pulse Oximetry Oxygen Delivery Room Air Room Air 05/20/25 12:00 05/20/25 14:00 05/20/25 16:00 Temperature 97.6 F Pulse Rate 60 60 58 L Respiratory Rate 18 Blood Pressure 130/80 Pulse Oximetry 99 Oxygen Delivery 05/20/25 20:00 05/20/25 20:15 05/20/25 21:18 Temperature 96.7 F L Pulse Rate 49 L 51 L Respiratory Rate 20 Blood Pressure 138/65 138/65 Pulse Oximetry 100 Oxygen Delivery 05/20/25 21:32 05/20/25 21:32 05/21/25 00:15 Temperature Pulse Rate 53 L Respiratory Rate Blood Pressure 117/84 119/71 Pulse Oximetry Oxygen Delivery 05/21/25 05:53 Temperature 97.2 F L Pulse Rate 59 L Respiratory Rate 20 Blood Pressure 115/50 L Pulse Oximetry 98 Oxygen Delivery Intake/Output Intake/Output: Intake & Output 05/18/25 05/19/25 05/20/25 05/21/25 23:59 23:59 23:59 23:59 Intake Total 100 2600 Balance 100 2600 Meds/Results Medications: Active Medications Generic Name Dose Route Start Last Admin Trade Name Freq PRN Reason Stop Dose Admin Acetaminophen 650 mg 05/19/25 14:46 05/21/25 00:46 Acetaminophen 325 Mg Tablet PO 650 mg Q4H PRN Administration Mild Pain (1-3) or Fever Atorvastatin Calcium 20 mg 05/20/25 09:00 05/20/25 09:05 Atorvastatin 20 Mg Tablet PO 20 mg DAILY JUAN Administration Citalopram Hydrobromide 20 mg 05/20/25 09:00 05/20/25 09:05 Citalopram Hydrobromide 20 Mg Tablet BY MOUTH 20 mg DAILY JUAN Administration Clopidogrel Bisulfate 75 mg 05/20/25 09:00 05/20/25 09:05 Clopidogrel Bisulfate 75 Mg Tablet PO 75 mg DAILY JUAN Administration Cyanocobalamin 1,000 mcg 05/20/25 11:50 05/20/25 17:37 Cyanocobalamin 1,000 Mcg Tablet PO 1,000 mcg QAM JUAN Administration Dextrose 12.5 gm 05/19/25 14:50 Dextrose 50% 25 Gm/50 Ml Syringe IV PUSH PRN PRN Hypoglycemia Protocol Docusate Sodium 100 mg 05/19/25 14:46 Docusate Sodium 100 Mg Capsule PO BID PRN Constipation Enoxaparin Sodium 40 mg 05/20/25 09:00 05/20/25 09:05 Enoxaparin 40 Mg/0.4 Ml Syringe SUB-Q 40 mg DAILY JUAN Administration Gabapentin 100 mg 05/19/25 20:00 05/20/25 17:38 Gabapentin 100 Mg Capsule PO 100 mg BID JUAN Administration Glucagon 1 mg 05/19/25 14:50 Glucagon For Inj 1 Mg Vial IM PRN PRN Hypoglycemia Protocol Glucose 15 gm 05/19/25 14:50 Glucose Oral Gel 15 Gm Of Glucse In 37.5 Gm Tube PO PRN PRN Hypoglycemia Protocol Sodium Chloride 1,000 mls @ 100 mls/hr 05/19/25 14:50 05/20/25 21:02 Normal Saline Iv IV CONT 100 mls/hr .Q10H JUAN Administration Dextrose 1,000 mls @ 100 mls/hr 05/19/25 14:50 Dextrose 5% 1,000 Ml IVPB PRN PRN Hypoglycemia Protocol Insulin Aspart 2 - 5 units 05/19/25 17:00 05/20/25 17:37 Insulin Aspart (*Bkc) 100 Units/Ml SUB-Q Not Given TIDWM JUAN Protocol Levothyroxine Sodium 50 mcg 05/20/25 06:30 05/21/25 05:59 Levothyroxine Sodium 50 Mcg Tablet PO 50 mcg DAILY@0630 JUAN Administration Metoprolol Tartrate 50 mg 05/19/25 21:00 05/20/25 20:56 Metoprolol Tartrate 50 Mg Tab PO 50 mg Q12HR JUAN Administration Pregabalin 100 mg 05/19/25 20:00 05/20/25 17:37 Pregabalin (*Crx) 50 Mg Capsule PO 100 mg BID JUAN Administration Zolpidem Tartrate 10 mg 05/21/25 21:00 Zolpidem Tartrate (*Crx) 5 Mg Tablet PO HS [facility] Radiology Results: ITS Impressions Chest X-Ray 05/19/25 12:15 Impression: 1: Left basilar atelectasis. Carotid Doppler Study 05/20/25 15:16 IMPRESSION: 1. <50% stenosis in the right internal carotid artery. 2. <50% stenosis in the left internal carotid artery. Labs Labs: Laboratory Results - last 24 hr 05/20/25 05/20/25 05/20/25 11:46 16:43 20:14 POC Capillary Glucose 104 99 122 H Quality VTE Prophylaxis VTE prophylaxis: mechanical ordered and pharmacologic ordered
[2025-05-21 09:03] LABS: Glucose Point of Care 120 mg/dl (65-105)
[2025-05-21] MEDS: SODIUM CHLORIDE 0.9% IV 1,000 ML 100 ML IV CONT (09:05)
[2025-05-21] MEDS: CITALOPRAM HYDROBROMIDE 20 MG TABLET BY MOUTH (09:08)
[2025-05-21] MEDS: CYANOCOBALAMIN 1,000 MCG TABLET 1000 MCG PO (09:08)
[2025-05-21] MEDS: PREGABALIN (*CRX) 50 MG CAPSULE 100 MG PO (09:08)
[2025-05-21] MEDS: ATORVASTATIN 20 MG TABLET PO (09:08)
[2025-05-21] MEDS: METOPROLOL TARTRATE 50 MG TAB PO (09:08)
[2025-05-21] MEDS: GABAPENTIN 100 MG CAPSULE PO (09:08)
[2025-05-21] MEDS: ENOXAPARIN 40 MG/0.4 ML SYRINGE SUB-Q (09:09)
[2025-05-21] MEDS: CLOPIDOGREL BISULFATE 75 MG TABLET PO (09:09)
[2025-05-21 11:19] LABS: Basophils Percent Auto 0.3 % (0.2-1.2); Eosinophils Absolute Auto 0.3 K/mm3 (0-0.3); Eosinophils Percent Auto 5.5 % (0-4.4); Hematocrit 39.6 % (42.0-52.0); Hemoglobin 13.2 g/dL (14.0-18.0); Immature Granulocyte Absolute 0.01 K/mm3 (0.00-0.031); Immature Granulocyte Percent A 0.2 % (0-0.5); Immature Platelet Fraction Pct 9.2 % (0.9-11.2); Lymphocytes Absolute Auto 1.35 K/mm3 (0.9-3.2); Mean Corpuscular HGB Conc 33.3 g/dl (32-36); Mean Corpuscular Hemoglobin 32.1 pg (26-34); Mean Corpuscular Volume 96.4 fl (80-100); Mean Platelet Volume 11.2 fl (7.4-10.4); Monocytes Absolute Auto 0.8 K/mm3 (0.1-0.6); Neutrophils Absolute Auto 3.6 K/mm3 (1.3-6.7); Platelet Count Result 134 k/mm3 (150-375); Red Blood Count 4.11 M/mm3 (4.6-6.20); Red Cell Distribution Width 13.6 % (11.5-14.5); White Blood Count 6.1 K/mm3 (4.5-10.0)
[2025-05-21 11:36] LABS: Alanine Aminotransferase 30 U/L (6-50); Albumin Level 3.8 g/dL (3.5-5.1); Alkaline Phosphatase 82 U/L (38-126); Anion Gap 9 mmol/L (4-12); Aspartate Amino Transferase 33 U/L (17-59); Bilirubin,Total 0.9 mg/dL (0.2-1.3); Blood Urea Nitrogen 11 mg/dL (9-20); Calcium 8.7 mg/dL (8.4-10.2); Carbon Dioxide 21 mmol/L (22-30); Chloride 110 mmol/L (98-107); Estimated CRCL calculation 81 ml/min; Estimated Glomerular Filt Rate > 60; Glucose 112 mg/dL (65-110); Potassium 3.9 mmol/L (3.4-5.0); Sodium 140 mmol/L (137-145)
[2025-05-21 12:03] LABS: Glucose Point of Care 107 mg/dl (65-105)
--- NOTE | 2025-05-21 13:00 | P.DS_ITS ---
DS: Admitting Diagnosis Discharge Date 05/21/2025 Admitting Diagnosis Syncope DS: Discharge Diagnosis Discharge Diagnosis (1) Syncope: Code(s): R55 - Syncope and collapse Status: Acute (2) Anemia: Code(s): D64.9 - Anemia, unspecified Status: Acute (3) Type 2 diabetes mellitus without complication, without long-term current use of insulin: Code(s): E11.9 - Type 2 diabetes mellitus without complications Status: Acute (4) Idiopathic chronic gout, unspecified site, without tophus (tophi): Qualifiers: Gout site: unspecified site Qualified Code(s): M1A.00X0 - Idiopathic chronic gout, unspecified site, without tophus (tophi) Code(s): M1A.00X0 - Idiopathic chronic gout, unspecified site, without tophus (tophi) Status: Acute (5) Dyslipidemia: Code(s): E78.5 - Hyperlipidemia, unspecified Status: Acute (6) Essential (primary) hypertension: Code(s): I10 - Essential (primary) hypertension Status: Acute DS: Summary Hospital Course Reason for hospitalization: Passed out Hospital Course: 79-year-old male past medical history of TIA, gout, diabetes, hypertension, CAD and peripheral neuropathy presents the hospital after a syncopal event at [facility]. Patient states that he just passed out. Denies complaints prior to passing out. Patient was standing and talking to 2 other people on these lowered him to the ground. Patient states that he thinks he was is blood sugar S he felt much better after drinking orange juice. He did not his head. He denies injury. Patient often gets off topic when talking and tends to ramble. The patient's blood pressure is soft 106/63, heart rate 54 pulse ox her present. Lab work shows anemia at 12.6 with no prior labs available, troponin negative, glucose 116. Patient was admitted for syncopal episode, anemia and management of type 2 diabetes and hypertension. Patient was seen on 05/20 and was feeling better at that time and denies any shortness of breath or chest pain. He had a chest x- ray which showed left basilar atelectasis. Patient is afebrile with a benign physical exam. Carotid Doppler study was obtained which showed less than 50% stenosis in the right and left internal carotid artery. Head CT was obtained which showed no acute intracranial abnormalities. Echocardiogram showed normal left and right ventricular size and systolic contractility with grade 1 diastolic noncompliance. No valvular abnormality. EKG showed sinus bradycardia with sinus arrhythmia. Throughout hospitalization patient had consistent heart rates in the 50s and 60s. Patient is otherwise hemodynamically stable with reassuring blood work. No major electrolyte abnormalities. Patient has been ambulatory throughout his room and has no episodes of syncopal episodes since admission. Patient has expressed great interest in being discharged, stating that he feels completely fine and if he does any discharged today he will likely leave AMA. States that the morning he had a syncopal episode, he did not have any breakfast and felt his ?sugars dropping which has happened before but he has not a full syncopal episode like this. At no point throughout hospitalization did he have low glucose levels. Less likely cardiac cause of syncope. Orthostatic signs were obtained and reassuring and within normal limits. Neurological exam unremarkable for any findings. Given reassuring blood work and imaging, patient can otherwise be discharged with close follow-up with his PCP. Status at Discharge Functional status at discharge: independent ambulation Overall status at discharge: patient is back to baseline Time Spent with Patient Time attestation: Total time spent providing and/or coordinating discharge services: 41 Exam Narrative: General: well appearing, appears stated age. HEENT: normocephalic, atraumatic. Mucous membranes moist. EOMI, PERRLA, bilateral sclera anicteric, no conjunctival injection. Neck supple without JVD, lymphadenopathy, or bruit. Respiratory: clear to ascultation bilaterally. No rales/rhonic/wheezes. Cardiovascular: Regular rate and rhythm, normal S1-S2 upon ascultation. No murmurs, rubs, or clicks. PMI is nondisplaced, capillary refill less than 3 second. Abdomen: Soft, round, no pulsatile masses, nondistended and nontender. No reboun d, no guarding. No CVA tenderness, no hepatosplenomegaly. Bowel sounds present to all four quadrants. No high pitch or tinkling sounds, resonant to percussion. Extremities: No cyanosis, clubbing, or edema present. Pulses are palpable 2/2. Active ROM to all four extremities. Neuro: Alert and orientated x 4. PERRLA. Cranial nerves 2-12 intact without focal deficit. Skin: Warm, dry, and intact, without rash, erythema, or lesion. Psych: pleasant, cooperative, normal speech, normal affect, no hallucinations, no dysarthia DS: Data Data Completed and Pending Labs on day of discharge: Labs from last 24 hours 05/21/25 05/21/25 05/21/25 11:56 11:07 08:40 WBC 6.1 RBC 4.11 L Hgb 13.2 L Hct 39.6 L MCV 96.4 MCH 32.1 MCHC 33.3 RDW 13.6 Plt Count 134 L MPV 11.2 H Immature Gran % (Auto) 0.2 Neut % (Auto) 59.0 Lymph % (Auto) 22.0 [place] % (Auto) 13.0 H Eos % (Auto) 5.5 H Baso % (Auto) 0.3 Lymph # (Auto) 1.35 [place] # (Auto) 0.8 H Eos # (Auto) 0.3 Baso # (Auto) 0.0 Abs Immat Gran (auto) 0.01 Absolute Neuts (auto) 3.6 Absolute Nucleated RBC 0.000 Nucleated RBC % 0.0 % Immature Plt Fraction 9.2 Sodium 140 Potassium 3.9 Chloride 110 H Carbon Dioxide 21 L Anion Gap 9 BUN 11 Creatinine 0.65 L Estim Creat Clear Calc 81 Estimated GFR > 60 Glucose 112 H POC Capillary Glucose 107 H 120 H Calcium 8.7 Total Bilirubin 0.9 AST 33 ALT 30 Alkaline Phosphatase 82 Total Protein 7.0 Albumin 3.8 05/20/25 05/20/25 20:14 16:43 WBC RBC Hgb Hct MCV MCH MCHC RDW Plt Count MPV Immature Gran % (Auto) Neut % (Auto) Lymph % (Auto) [place] % (Auto) Eos % (Auto) Baso % (Auto) Lymph # (Auto) [place] # (Auto) Eos # (Auto) Baso # (Auto) Abs Immat Gran (auto) Absolute Neuts (auto) Absolute Nucleated RBC Nucleated RBC % % Immature Plt Fraction Sodium Potassium Chloride Carbon Dioxide Anion Gap BUN Creatinine Estim Creat Clear Calc Estimated GFR Glucose POC Capillary Glucose 122 H 99 Calcium Total Bilirubin AST ALT Alkaline Phosphatase Total Protein Albumin Discharge Plan Discharge Attending physician on discharge: Melanie King Consulting providers: Matt Bloom Discharging Clinician: Matt Bloom Anticipated Discharge Date/Time: 05/21/25 12:57 Patient Disposition: Home Activity: no straining and as tolerated Diet: as tolerated and heart healthy Discharge Instructions: Take all medications as prescribed even if feeling better Eat well balanced meals and stay hydrated Follow-up with primary care physician in 1-2 weeks. Change positions slowly taking a break in between each position change If you should experience any chest pain, shortness of breath, temps >100.4 or any other worrisome symptoms please follow up with your PCP come back to the hospital It has been a pleasure taking care of you thank you for using our services Patient Instructions: Antibiotic Form Patient Language: Turkish Stand Alone Forms: General Discharge Information Follow-up/Referrals: Wil,Michael Boyle MD [Primary Care Provider] - Discharge Medications: Continued atorvastatin 20 mg tablet 20 mg PO DAILY metoprolol tartrate 50 mg tablet 50 mg PO BID levothyroxine 50 mcg tablet 50 mcg PO DAILY@0630 pregabalin 100 mg capsule 100 mg PO BID valsartan 80 mg tablet 40 mg PO DAILY [facility]-2 250-90-40-1 mg capsule 1 tablet PO BID gabapentin 100 mg capsule 100 mg PO BID zolpidem 12.5 mg tablet,ext release multiphase 12.5 mg PO .QHS glimepiride 1 mg tablet See Rx Instructions .ROUTE .COMPLEX Qty: 90 3RF Dose Instruction: TAKE 1 TABLET DAILY Rx Instructions: TAKE 1 TABLET DAILY metformin 1,000 mg tablet 1,000 mg PO BID Qty: 180 0RF citalopram 20 mg tablet See Rx Instructions .ROUTE .COMPLEX Qty: 90 2RF Dose Instruction: TAKE 1 TABLET DAILY Rx Instructions: TAKE 1 TABLET DAILY clopidogrel 75 mg tablet 75 mg PO DAILY Qty: 90 0RF Rx Instructions: needs follow-up for further refills Date of admission: 05/20/25 12:50 Primary Care Provider: WilMichael Admitting Provider: Luis De La Torre Attending physician on admission: Luis De La Torre Condition: Stable Quality VTE Prophylaxis VTE prophylaxis: mechanical ordered and pharmacologic ordered
== END 2025-05-21 14:28 | disposition home or self-care (01) | DRG 312 ==
LOC: ANHED 13:07 → ANH3MEDSUR 14:12
PROVIDERS: Nurse Practitioner Gerontology; Physician Assistant; Admitting Provider General Practice; Emergency Provider Emergency Medicine; PCP Family Medicine; Visit Provider Internal Medicine
DX: R55 Syncope and collapse (principal); D64.9 Anemia, unspecified; E86.0 Dehydration; I25.10 Atherosclerotic heart disease of native coronary artery without angina pectoris; E78.5 Hyperlipidemia, unspecified; I10 Essential (primary) hypertension; M1A.00X0 Idiopathic chronic gout, unspecified site, without tophus (tophi); E11.42 Type 2 diabetes mellitus with diabetic polyneuropathy; M19.90 Unspecified osteoarthritis, unspecified site; Z89.112 Acquired absence of left hand; Z86.73 Personal history of transient ischemic attack (TIA), and cerebral infarction without residual deficits
CPT/HCPCS: 36415; 70450; 71046; 80048; 80053; 82607; 82728; 82746; 82948; 83540; 83550; 84443; 84466; 84484; 85025; 85055; 85610; 85730; 93005; 93880; 96375; 97161; 97165; 99285; A9270; C8929; G0378; J1650; J1815; J7030; Q9957

== ENCOUNTER 2025-08-06 18:13 | Emergency (ER) | payer MEDICARE, OTHER, SELFPAY ==
--- NOTE | ~2025-08-06 | XR_ITS ---
EXAMINATION: XR chest 2V DATE: 08/06/2025 19:02 INDICATION: Syncope TECHNIQUE: frontal and lateral views of the chest were obtained. COMPARISON: Chest radiograph dated 05/19/2025 FINDINGS: No focal airspace opacities, pulmonary edema, pleural effusion or pneumothorax. Heart size is normal. Several surgical clips in the epigastric region. Moderate thoracic spondylosis. IMPRESSION: 1. No acute cardiopulmonary disease. Reviewed, dictated and finalized at location A.
[2025-08-06 18:12] VITALS: BP 107/83; PULSE 65; RESP 17; TEMP 36.5; O2SAT 100
--- NOTE | 2025-08-06 18:20 | ECG_ITS ---
Test Date: 2025-08-06 18:28:33 Measurements Intervals [place] Rate: 50 P: 53 HI: 206 QRS: -23 QRSD: 93 T: 32 QT: 480 QTc: 442 Interpretive Statements SINUS BRADYCARDIA WITH OCCASIONAL VENTRICULAR PREMATURE COMPLEXES BORDERLINE LEFT AXIS DEVIATION [QRS AXIS < -20] LOW QRS VOLTAGE IN EXTREMITY LEADS [QRS DEFLECTION < 0.5 mV IN LIMB LEADS] Compared to ECG 05/19/2025 11:37:17 Ventricular premature complex(es) now present Sinus arrhythmia no longer present Electronically Signed On 08-07-2025 15:51:40 CDT by Obie An M.D.
[2025-08-06 18:56] LABS: Hematocrit 37.3 % (42.0-52.0); Hemoglobin 12.4 g/dL (14.0-18.0); Immature Granulocyte Percent A 0.5 % (0-0.5); Lymphocytes Absolute Auto 1.67 K/mm3 (0.9-3.2); Mean Corpuscular HGB Conc 33.2 g/dl (32-36); Mean Corpuscular Hemoglobin 32.5 pg (26-34); Mean Corpuscular Volume 97.6 fl (80-100); Nucleated Red Blood Cells Absolute Auto 0.000 K/mm3 (0.0-0.012); Nucleated Red Blood Cells Perc 0.0 % (0.0-0.2); Platelet Count Result 120 k/mm3 (150-375); Red Blood Count 3.82 M/mm3 (4.6-6.20); White Blood Count 6.5 K/mm3 (4.5-10.0)
[2025-08-06 19:12] LABS: Alanine Aminotransferase 17 U/L (6-50); Albumin Level 3.8 g/dL (3.5-5.1); Alkaline Phosphatase 90 U/L (38-126); Anion Gap 6 mmol/L (4-12); Aspartate Amino Transferase 29 U/L (17-59); Bilirubin,Total 0.7 mg/dL (0.2-1.3); Blood Urea Nitrogen 15 mg/dL (9-20); Calcium 8.9 mg/dL (8.4-10.2); Carbon Dioxide 27 mmol/L (22-30); Chloride 104 mmol/L (98-107); Estimated CRCL calculation 55 ml/min; Estimated Glomerular Filt Rate > 60; Glucose 109 mg/dL (65-110); Potassium 4.5 mmol/L (3.4-5.0); Sodium 137 mmol/L (137-145); Total Protein 6.8 g/dL (6.3-8.2)
[2025-08-06 20:30] VITALS: BP 128/81; PULSE 63
[2025-08-06 20:34] VITALS: BP 134/89; PULSE 68
[2025-08-06 20:36] VITALS: BP 91/72; PULSE 55
[2025-08-06 20:46] LABS: Magnesium 1.9 mg/dL (1.6-2.3)
--- NOTE | 2025-08-06 20:59 | ED.SYNCOPE ---
HPI - Syncope General Chief Complaint: Syncope Stated Complaint: syncopal Time Seen by Provider: 08/06/25 19:38 History of Present Illness HPI narrative: Patient is an 80-year-old male who presents emergency department this evening status post a syncopal episode. Patient states that he has been getting these episodes where he feels like is going to pass out and can usually lower himself down. [place]. Patient states that approximately 1 month ago he was seen here for these episodes and had a full cardiac workup which was unremarkable. Patient has an appointment with his inserting press operator on Friday in 2 days. [facility] is [facility] Currently denying any symptoms. Initially when this happened, it was reported that the patient's blood pressure was 60/30. Otherwise patient is denying any symptoms including any chest pain or shortness of breath and states that he feels fine and is at his baseline. Related Data Home Medications ?Medication ?Instructions ?Recorded ?Confirmed ?Last Taken ?Type atorvastatin 20 mg tablet 20 mg PO DAILY 10/18/19 05/19/25 Unknown History metoprolol tartrate 50 mg tablet 50 mg PO BID 10/18/19 05/19/25 Unknown History gabapentin 100 mg capsule 100 mg PO BID 05/19/25 05/19/25 Unknown History levothyroxine 50 mcg tablet 50 mcg PO DAILY@0630 05/19/25 05/19/25 Unknown History pregabalin 100 mg capsule 100 mg PO BID 05/19/25 05/19/25 Unknown History valsartan 80 mg tablet 40 mg PO DAILY 05/19/25 05/19/25 Unknown History vit C 250 mg-vit E 90 mg-zinc 40 1 tablet PO BID 05/19/25 05/19/25 Unknown History mg-copper 1 [id number] capsule ([facility] AREDS-2) zolpidem 12.5 mg tablet,extended 12.5 mg PO .QHS insomnia 05/19/25 05/19/25 05/18/25 History release,multiphase Allergies Allergy/AdvReac Type Severity Reaction Status Date / Time erythromycin base Allergy Unknown Unknown Verified 07/14/20 15:47 tetracycline Allergy Unknown Unknown Verified 07/14/20 15:47 Review of Systems Review of Systems: All systems are reviewed and are negative unless stated otherwise in the HPI. [facility] Past Medical History Medical History Peripheral neuropathy Bilateral knee pain Chronic low back pain Coronary artery disease Arthritis Diabetes Depression Hypertension History of transient ischemic attack (TIA) Gout Degenerative disc disease Surgical History Surgical History S/P laparoscopic fundoplication History of amputation of finger of left hand History of cardiac catheterization Hx of arthroscopy of left knee Family History Family History Mother Diabetes mellitus Family history of osteoarthritis Father Family history of dementia Other Family history of arthritis Family history of malignant neoplasm Social History Social History Smoking status: Never smoker Second hand tobacco smoke exposure: No Alcohol intake: current Alcohol use details: 1 glass of wine rarely Substance use: never Substance use type: does not use Do You Feel Safe in your Home?: Yes Lack of Transportation: No Lack of Food: Sometimes True Current Housing: I Have Housing Concerned About Future Housing: No Difficulty Paying Gas/Electric Bills: No Difficulty Paying for Meds: No Currently Unemployed: No Education: Master's Degree or Higher Difficulty w/ Childcare or Family Care: No Spiritual care concerns: No Exam Narrative: General: Alert, awake, afebrile, in no acute distress. HEENT: PERRL, no rhinorrhea, no post nasal drip, oropharynx clear. Neck: Trachea midline, no JVD, no lymphadenopathy. Cardiovascular: Regular rate and rhythm, no murmurs, rubs or gallops, no peripheral edema. Respiratory: Clear to auscultation bilaterally, no tachypnea, no wheezing, no rhonchi, no rubs, no respiratory distress. Abdomen: Soft, nontender, nondistended, no rebound, no guarding, no peritoneal signs. Musculoskeletal: No joint swelling or deformity, normal muscle tone. Skin: No rashes or petechia, no signs of infection. Psychiatric: Alert and oriented, normal behavior and judgment for situation. Neurological: Alert and oriented to person, place, and time. Follows all commands. No focal deficits, speech is clear and fluent. Course Vital Signs Vital signs: Vital Signs Temperature 97.7 F 08/06/25 18:12 Pulse Rate 65 08/06/25 18:12 Respiratory Rate 17 08/06/25 18:12 Blood Pressure 107/83 08/06/25 18:12 Pulse Oximetry 100 08/06/25 18:12 Oxygen Delivery Room Air 08/06/25 18:12 Temperature 97.7 F 08/06/25 18:12 Pulse Rate 55 L 08/06/25 20:36 Respiratory Rate 17 08/06/25 18:12 Blood Pressure 91/72 L 08/06/25 20:36 Pulse Oximetry 100 08/06/25 18:12 Oxygen Delivery Room Air 08/06/25 18:12 MDM - Syncope MDM Narrative Medical decision making narrative: The patient was evaluated by myself in the emergency department. History is obtained from patient who is an independent historian and physical exam was performed. External medical records were reviewed at this time. IV was established and pertinent tests were ordered. Patient was administered 1 L IV fluid bolus with normal saline. EKG was obtained which revealed sinus bradycardia rate of 50 beats per minute. No ST changes, T wave inversions or evidence of acute ischemia. EKG was independently interpreted by me and is currently pending official cardiology read. EKG was compared to EKG from May 19 2025 also revealing sinus bradycardia. Patient also had an echocardiogram on May 20, 2025 per chart review revealing an ejection fraction of 65-70% Laboratory results obtained revealing no acute process. Imaging studies obtained included CXR which was independently interpreted by me revealing no acute cardiopulmonary process, which is pending final radiology interpretation. Differential diagnosis considerations include vasovagal syncope, orthostatic hypotension, dehydration, electrolyte derangements, acute kidney injury, acute viral syndrome. Comorbidities impacting this visit include none. I have evaluated and discussed social determinants of health with the patient that could potentially impact subsequent diagnosis and treatment plans. On repeat assessment of the patient, reevaluation revealed that the patient is doing well and is in no acute distress. Patient symptoms have improved since he arrived to our emergency department. Repeat vital signs were all reviewed and noted to be stable. Differential diagnosis and treatment plan were discussed with the patient at bedside. Patient agrees with discussion and after shared medical decision making agrees with discharge. All questions were answered to the patient's satisfaction. Patient will follow up with his inserting press operator as scheduled for his upcoming appointment in 2 days. Patient was provided with strict return precautions and instructed to return to the emergency department if any new or worsening symptoms develop. The patient was discharged in stable condition. Lab Data 08/06/25 18:42 08/06/25 18:42 Labs: Lab Results 08/06/25 Range/Units 18:42 WBC 6.5 (4.5-10.0) K/mm3 RBC 3.82 L (4.6-6.20) M/mm3 Hgb 12.4 L (14.0-18.0) g/dL Hct 37.3 L (42.0-52.0) % MCV 97.6 (80-100) fl MCH 32.5 (26-34) pg MCHC 33.2 (32-36) g/dl RDW 13.3 (11.5-14.5) % Plt Count 120 L (150-375) k/mm3 MPV 12.0 H (7.4-10.4) fl Immature Gran % (Auto) 0.5 (0-0.5) % Neut % (Auto) 59.6 (45.5-73.1) % Lymph % (Auto) 25.7 (18.3-44.2) % [place] % (Auto) 10.9 H (2.6-8.5) % Eos % (Auto) 2.8 (0-4.4) % Baso % (Auto) 0.5 (0.2-1.2) % Lymph # (Auto) 1.67 (0.9-3.2) K/mm3 [place] # (Auto) 0.7 H (0.1-0.6) K/mm3 Eos # (Auto) 0.2 (0-0.3) K/mm3 Baso # (Auto) 0.0 (0.0-0.1) K/mm3 Abs Immat Gran (auto) 0.03 (0.00-0.031) K/mm3 Absolute Neuts (auto) 3.9 (1.3-6.7) K/mm3 Absolute Nucleated RBC 0.000 (0.0-0.012) K/mm3 Nucleated RBC % 0.0 (0.0-0.2) % Sodium 137 (137-145) mmol/L Potassium 4.5 (3.4-5.0) mmol/L Chloride 104 (98-107) mmol/L Carbon Dioxide 27 (22-30) mmol/L Anion Gap 6 (4-12) mmol/L BUN 15 (9-20) mg/dL Creatinine 0.97 (0.7-1.3) mg/dL Estim Creat Clear Calc 55 ml/min Estimated GFR > 60 (59 - ) Glucose 109 (65-110) mg/dL Calcium 8.9 (8.4-10.2) mg/dL Magnesium 1.9 (1.6-2.3) mg/dL Total Bilirubin 0.7 (0.2-1.3) mg/dL AST 29 (17-59) U/L ALT 17 (6-50) U/L Alkaline Phosphatase 90 (38-126) U/L Total Protein 6.8 (6.3-8.2) g/dL Albumin 3.8 (3.5-5.1) g/dL Discharge Plan Discharge Clinical Impression: Syncope Patient Disposition: Home Condition: Improved Instructions: Antibiotic Form, Syncope (ED) Additional Instructions: Please follow-up with your inserting press operator as scheduled for upcoming appointment in 2 days. Return to the emergency department if any new or worsening symptoms develop. Patient Language: Libyan Prescriptions: No Action atorvastatin 20 mg tablet 20 mg PO DAILY metoprolol tartrate 50 mg tablet 50 mg PO BID levothyroxine 50 mcg tablet 50 mcg PO DAILY@0630 pregabalin 100 mg capsule 100 mg PO BID valsartan 80 mg tablet 40 mg PO DAILY [facility]-2 250-90-40-1 mg capsule 1 tablet PO BID gabapentin 100 mg capsule 100 mg PO BID zolpidem 12.5 mg tablet,ext release multiphase 12.5 mg PO .QHS glimepiride 1 mg tablet See Rx Instructions .ROUTE .COMPLEX Qty: 90 3RF Dose Instruction: TAKE 1 TABLET DAILY Rx Instructions: TAKE 1 TABLET DAILY metformin 1,000 mg tablet 1,000 mg PO BID Qty: 180 0RF citalopram 20 mg tablet See Rx Instructions .ROUTE .COMPLEX Qty: 90 2RF Dose Instruction: TAKE 1 TABLET DAILY Rx Instructions: TAKE 1 TABLET DAILY clopidogrel 75 mg tablet 75 mg PO DAILY Qty: 90 0RF Rx Instructions: needs follow-up for further refills Follow-up/Referrals: Wil,Michael Boyle MD [Primary Care Provider, Unknown] - 2 Days Time of Disposition: 21:01
[2025-08-06] MEDS: SODIUM CHLORIDE 0.9% IV 1,000 ML 999 ML IV CONT (21:02)
--- NOTE | 2025-08-06 21:04 | PC.NURSE ---
chin wound irrigated, triple abx applied and bandage
[2025-08-06 21:49] VITALS: BP 120/83; PULSE 63; RESP 16; O2SAT 96
== END 2025-08-06 22:09 | disposition home or self-care (01) ==
PROVIDERS: Student in an Organized Health Care Education/Training Program; Emergency Provider Emergency Medicine; PCP Family Medicine
DX: R55 Syncope and collapse (principal); I25.10 Atherosclerotic heart disease of native coronary artery without angina pectoris; I10 Essential (primary) hypertension; E11.42 Type 2 diabetes mellitus with diabetic polyneuropathy; M10.9 Gout, unspecified; M19.90 Unspecified osteoarthritis, unspecified site; F32.A Depression, unspecified; Z86.73 Personal history of transient ischemic attack (TIA), and cerebral infarction without residual deficits; Z89.022 Acquired absence of left finger(s); Z79.899 Other long term (current) drug therapy; Z79.84 Long term (current) use of oral hypoglycemic drugs; Z79.02 Long term (current) use of antithrombotics/antiplatelets; R00.1 Bradycardia, unspecified; I49.3 Ventricular premature depolarization
CPT/HCPCS: 36415; 71046; 80053; 83735; 85025; 93005; 96360; 99284; J7030